=== PATIENT | male | born 1945 | race Caucasian/White ===

== ENCOUNTER 2016-11-19 14:46 | Emergency (ER) | payer MEDICARE, OTHER ==
[~2016-11-19] VITALS: Ht 172.7 cm; Wt 59.0 kg
[2016-11-19 14:46] VITALS: BP 110/62
[~2016-11-19 14:46] MED LIST: ALBU8.5H4 IH; ASPI-495 PO; CLOP75TA2 PO; LISI-607 PO; METO25TA20 PO; ROSU10TA PO; TAMS-12 PO
[2016-11-19] MEDS ORDERED: ACETAMINOPHEN ES 500 MG TABLET PO ONE (15:30)
[2016-11-19] MEDS ORDERED: TDAP [DIPH/PERTUSSIS/TET] 0.5 ML VIAL IM ONE ×2 (15:30→15:32)
[2016-11-19] MEDS ORDERED: ACETAMINOPHEN ES 500 MG TABLET ONE (15:32)
[2016-11-19] MEDS ORDERED: LIDOCAINE HCL/PF 1% 30 ML SDV ONE (15:40)
--- NOTE | 2016-11-19 17:40 | NUR ---
DR MOSQUERA AT BEDSIDE FOR ACI
--- NOTE | 2016-11-19 17:42 | NUR ---
Patient discharged to home in stable condition. Written and verbal after care instructions given. Patient verbalizes understanding of instruction.
== END 2016-11-19 17:43 | disposition home or self-care (01) ==
LOC: ER 14:47
DX: S62.633A Displaced fracture of distal phalanx of left middle finger, initial encounter for closed fracture (principal); S61.213A Laceration without foreign body of left middle finger without damage to nail, initial encounter; I10 Essential (primary) hypertension; N40.0 Benign prostatic hyperplasia without lower urinary tract symptoms; F17.200 Nicotine dependence, unspecified, uncomplicated; Z98.890 Other specified postprocedural states; Z23 Encounter for immunization; Z79.82 Long term (current) use of aspirin; Z79.02 Long term (current) use of antithrombotics/antiplatelets; W23.0XXA Caught, crushed, jammed, or pinched between moving objects, initial encounter; Y93.89 Activity, other specified; Y92.89 Other specified places as the place of occurrence of the external cause; Y99.9 Unspecified external cause status
CPT/HCPCS: 73140-TC; 90715; A4606; A6402; J3490; Z7610

== ENCOUNTER → 2016-11-21 | Emergency (ER) | payer MEDICARE, OTHER ==
[~2016-11-21] VITALS: Ht 175.3 cm; Wt 50.8 kg
[~2016-11-21] MED LIST changes: +BACI/NEOM/POLY B OINT PKT 1 UDPKT PACKET ONE
[2016-11-21 15:07] VITALS: BP 152/78
== END | disposition home or self-care (01) ==
LOC: ER 15:11
DX: S61.213D Laceration without foreign body of left middle finger without damage to nail, subsequent encounter (principal); I10 Essential (primary) hypertension; I25.2 Old myocardial infarction; N40.0 Benign prostatic hyperplasia without lower urinary tract symptoms; Z79.82 Long term (current) use of aspirin
CPT/HCPCS: 99283; A4606; A6402; A6403; Z7502; Z7610

== ENCOUNTER 2016-11-26 13:57 | Emergency (ER) | payer MEDICARE, OTHER ==
[~2016-11-26] VITALS: Ht 172.7 cm; Wt 59.0 kg
[~2016-11-26 13:57] MED LIST changes: -BACI/NEOM/POLY B OINT PKT 1 UDPKT PACKET ONE
[2016-11-26 14:05] VITALS: BP 113/62
== END 2016-11-26 16:51 | disposition other institution (70) ==
LOC: ER 13:59
DX: S62.633D Displaced fracture of distal phalanx of left middle finger, subsequent encounter for fracture with routine healing (principal); S61.213D Laceration without foreign body of left middle finger without damage to nail, subsequent encounter; I10 Essential (primary) hypertension; I25.2 Old myocardial infarction; N40.0 Benign prostatic hyperplasia without lower urinary tract symptoms; E78.00 Pure hypercholesterolemia, unspecified; F17.200 Nicotine dependence, unspecified, uncomplicated; Z79.82 Long term (current) use of aspirin; Z98.890 Other specified postprocedural states; X58.XXXD Exposure to other specified factors, subsequent encounter; Y93.89 Activity, other specified; Y92.89 Other specified places as the place of occurrence of the external cause; Y99.9 Unspecified external cause status
CPT/HCPCS: A4606; A6402; Z7502; Z7610

== ENCOUNTER 2016-12-23 16:24 | Emergency (ER) | payer MEDICARE, OTHER ==
[~2016-12-23] VITALS: Ht 172.7 cm; Wt 59.0 kg
== END 2016-12-23 18:22 | disposition home or self-care (01) ==
LOC: ER 16:26
DX: S61.213D Laceration without foreign body of left middle finger without damage to nail, subsequent encounter (principal); R35.1 Nocturia; M79.641 Pain in right hand; E78.00 Pure hypercholesterolemia, unspecified; I25.2 Old myocardial infarction; I10 Essential (primary) hypertension; N40.1 Benign prostatic hyperplasia with lower urinary tract symptoms; Z79.82 Long term (current) use of aspirin; F17.200 Nicotine dependence, unspecified, uncomplicated
CPT/HCPCS: 99281; A4606; Z7502; Z7610

== ENCOUNTER 2017-02-27 19:55 | Inpatient (IN) | payer MEDICARE, OTHER ==
[~2017-02-27] VITALS: Ht 172.7 cm; Wt 54.9 kg
--- NOTE | 2017-02-27 20:00 | NUR ---
TO BED 5 A 71 YO MALE PATIENT BIBRA 78 FROM HOME C/O CHEST PAIN AND SOB SINCE YESTERDAY, WORSE CREDIT PORTFOLIO MANAGER PER EMS GAVE ASA 162 AND 2 SPRAY NITRO WITH RELIEF; 4/10 PAIN UPON ARRIVAL TO ER. PATIENT IS AAOX4, NAD NOTED. VSS. NONDIAPHORETIC. ON CARDIAC AND VS MONITORING. GOWNED. COMFORT MEASURES RENDERED.
--- NOTE | 2017-02-27 20:03 | NUR ---
DR DEAN AT BEDSIDE TO EVALUATE PATIENT.
[2017-02-27] MEDS ORDERED: ONDANSETRON HCL/PF 4 MG/2 ML VIAL ONE (20:21)
[2017-02-27] MEDS ORDERED: MORPHINE SULFATE INJ 2 MG/ML DISP.SYRIN ONE (20:21)
[2017-02-27] MEDS ORDERED: NITROGLYCERIN PACKET 1 GM PACKET ONE (20:21)
[2017-02-27 20:27] LABS: BASOPHILS # (AUTO) 0.1 /CMM (0.0-0.2); BASOPHILS % (AUTO) 0.7 % (0.0-2.0); EOSINOPHILS # (AUTO) 0.1 /CMM (0.0-0.7); EOSINOPHILS % (AUTO) 1.5 % (0.0-6.0); HEMATOCRIT 41 % (39-51); LYMPHOCYTES % (AUTO) 25.3 % (20.0-44.0); MEAN CORPUSCULAR HEMOGLOBIN 30 PG (26.0-33.0); MEAN CORPUSCULAR HGB CONC 34 g/dl (31.0-36.0); MEAN CORPUSCULAR VOLUME 88 fL (80-96); MONOCYTES # (AUTO) 0.8 /CMM (0.1-1.30); MONOCYTES % (AUTO) 9.7 % (2.0-12.0); NEUTROPHILS # (AUTO) 4.9 /CMM (1.8-8.9); NEUTROPHILS % (AUTO) 62.8 % (43.0-81.0); PLATELET COUNT (AUTO) 192 /CMM (150-450); RDW COEFFICIENT OF VARIATION 12.9 (11.5-15.0); RED BLOOD CELL COUNT(AUTO) 4.72 MIL/uL (4.5-6.0); WHITE BLOOD COUNT (AUTO) 7.9 K/uL (4.3-11.0)
[2017-02-27] MEDS ORDERED: ONDANSETRON HCL/PF 4 MG/2 ML VIAL IVP ONE (20:30)
[2017-02-27] MEDS ORDERED: NITROGLYCERIN PACKET 1 GM PACKET TOP ONE (20:30)
[2017-02-27] MEDS ORDERED: MORPHINE SULFATE INJ 2 MG/ML DISP.SYRIN IV ONE (20:30)
--- NOTE | 2017-02-27 20:33 | NUR ---
MEDICATED PATIENT ORDERED BY DR DEAN. NAD NOTED. VSS. ONGOING CARDIAC AND VS MONITORING. FAMILY AT BEDSIDE.
[2017-02-27 20:34] LABS: CARBON DIOXIDE 33 mmol/L (21-32); CHLORIDE 103 mmol/L (98-107); CREATININE 1.1 mg/dL (0.6-1.3); GLUCOSE 152 mg/dL (74-106); POTASSIUM 3.7 mmol/L (3.5-5.1); SODIUM SERUM 140 mmol/L (136-145); UREA NITROGEN, BLOOD 23 mg/dL (7-18)
[2017-02-27 20:38] LABS: PROTHROMBIN TIME 10.4 SECS (9.5-12.7)
[2017-02-27 20:39] LABS: ALANINE AMINOTRANSFERASE 15 U/L (12-78); ALBUMIN 3.2 g/dL (3.4-5.0); ALKALINE PHOSPHATASE 71 U/L (46-116); ASPARTATE AMINOTRANSFERASE 9 U/L (15-37); BILIRUBIN,DIRECT 0.1 mg/dL (0.0-0.2); BILIRUBIN,TOTAL 0.4 mg/dL (0.2-1.0); TOTAL PROTEIN, SERUM 6.7 g/dL (6.4-8.2)
[2017-02-27 20:42] LABS: TROPONIN I < 0.017 ng/mL (0.00-0.056)
--- NOTE | 2017-02-27 21:00 | NUR ---
PATIENT DENIES ANYMORE CHEST PAIN/DISCOMFORT. NO SOB NOTED. VSS. WILL CONTINUE TO MONITOR.
--- NOTE | 2017-02-27 21:06 | NUR ---
Bed- TELE 310-2
--- NOTE | 2017-02-27 21:28 | NUR ---
Report given to Kee HAMILTON for admission and anitha.
[2017-02-27] MEDS ORDERED: MORPHINE SULFATE INJ 2 MG/ML DISP.SYRIN IV PRN (21:30)
[2017-02-27] MEDS ORDERED: ASPIRIN 81 MG TAB.CHEW PO SCH (21:30)
[2017-02-27] MEDS ORDERED: ACETAMINOPHEN 325 MG TABLET PO PRN (21:30)
[2017-02-27] MEDS ORDERED: ONDANSETRON HCL/PF 4 MG/2 ML VIAL IVP PRN (21:30)
[2017-02-27] MEDS ORDERED: NITROGLYCERIN 0.4 MG/TAB BOTTLE SL PRN (21:30)
--- NOTE | 2017-02-27 21:50 | NUR ---
Transferred patient to tele floor via als protocol, no incident noted.
[2017-02-27] MEDS ORDERED: ASPIRIN 81 MG TAB.CHEW ONE (23:44)
[2017-02-28] VITALS (8 sets, daily range): BP systolic 127–151; BP diastolic 65–78
[2017-02-28] MEDS ORDERED: ZOLPIDEM TARTRATE 5 MG TABLET ONE (00:03)
[2017-02-28] MEDS: ZOLPIDEM TARTRATE 5 MG TABLET PO PRN ×2 (00:09→21:18)
--- NOTE | 2017-02-28 00:10 | NUR ---
RN NOTES PT ASKED FOR SLEEPING PILL- AMBIEN 5MG PO GIVEN ORDERED, V/S STABLE
--- NOTE | 2017-02-28 00:20 | NUR ---
MS RN INITIAL NOTES PT IN BED, AWAKE, ALERT, VERBALLY RESPONSIVE,ON ROOM AIR,NO SOB,NO APPARENT DISTRESS NOTED DENIES ANY PAIN OR DISCOMFORT AT THIS TIME. SINUS RHYTHM 78. IV SITE LT FA INTACT,PATENT,NOS/SX OF INFILTRATION NOTED.CALL LIGHT WITHIN REACH. KEPT CLEAN AND COMFORTABLE.CALL LIGHT WITHIN REACH. WILL CONTINUE TO MONITOR ACCORDINGLY
--- NOTE | 2017-02-28 04:02 | NUR ---
TELE MS RN NOTE RECEIVED REPORT FOR CRITICALLY HIGH TROPONIN LEVEL 0.516. DR MURRAY NOTIFIED, WITH NO NEW ORDER AT THIS TIME.
[2017-02-28 06:34] LABS: BASOPHILS % (AUTO) 0.5 % (0.0-2.0); EOSINOPHILS # (AUTO) 0.1 /CMM (0.0-0.7); EOSINOPHILS % (AUTO) 1.7 % (0.0-6.0); HEMATOCRIT 40 % (39-51); HEMOGLOBIN 13.1 g/dL (13.5-17.5); LYMPHOCYTES # (AUTO) 2.2 /CMM (0.8-4.8); LYMPHOCYTES % (AUTO) 27.2 % (20.0-44.0); MEAN CORPUSCULAR HEMOGLOBIN 30 PG (26.0-33.0); MEAN CORPUSCULAR HGB CONC 33 g/dl (31.0-36.0); MEAN CORPUSCULAR VOLUME 89 fL (80-96); MONOCYTES # (AUTO) 0.8 /CMM (0.1-1.30); MONOCYTES % (AUTO) 10.4 % (2.0-12.0); NEUTROPHILS # (AUTO) 4.8 /CMM (1.8-8.9); NEUTROPHILS % (AUTO) 60.2 % (43.0-81.0); PLATELET COUNT (AUTO) 188 /CMM (150-450); RDW COEFFICIENT OF VARIATION 13.6 (11.5-15.0); RED BLOOD CELL COUNT(AUTO) 4.44 MIL/uL (4.5-6.0)
--- NOTE | 2017-02-28 06:46 | NUR ---
REFUND CLERK CLOSING NOTES PT IN BED AWAKE, ALERT,VERBALLY RESPONSIVE,ON ROOM AIR,NO SOB,NO APPARENT DISTRESS NOTED. DENIES ANY PAIN OR DISCOMFORT AT THIS TIME.CALL LIGHT WITHIN REACH WILL CONTINUE TO MONITOR ACCORDINGLY
[2017-02-28 06:56] LABS: CALCIUM, SERUM 8.6 mg/dL (8.5-10.1); MAGNESIUM 1.9 mg/dL (1.8-2.4); PHOSPHORUS 2.8 mg/dL (2.5-4.9); POTASSIUM 4.1 mmol/L (3.5-5.1)
--- NOTE | 2017-02-28 07:10 | NUR ---
RN INITIAL NOTE PATIENT RECEIVED RESTING COMFORTABLY IN BED. NO SOB OR DISTRESS, PATIENT DENIES PAIN. HEART RATE SR IN THE 70S. BED IN A LOW POSITION, CALL LIGHT WITHIN PATIENT REACH. WILL CONTINUE TO MONITOR.
--- NOTE | 2017-02-28 08:00 | NUR ---
INFORMED DR GUERRERO OF TROP INCREASE TO 0.521. NO NEW ORDERS.
[2017-02-28 08:23] LABS: THYROID STIMULATING HORMONE 2.088 uIU/mL (0.358-3.74)
[2017-02-28 08:48] LABS: MAGNESIUM 1.9 mg/dL (1.8-2.4); PHOSPHORUS 2.9 mg/dL (2.5-4.9)
[2017-02-28] MEDS ORDERED: METOPROLOL TARTRATE 25 MG TABLET PO SCH (09:00)
[2017-02-28] MEDS: IV NS 0.9% 1,000 ML IV PRN ×2 (09:09→21:15)
[2017-02-28] MEDS: METOPROLOL TARTRATE 25 MG TABLET PO SCH ×2 (09:10→17:20)
[2017-02-28] MEDS: ASPIRIN EC 81 MG TABLET.DR PO SCH (09:10)
[2017-02-28] MEDS: VALSARTAN 80 MG TABLET PO SCH (09:11)
[2017-02-28] MEDS: LISINOPRIL (5MG) 5 MG TABLET PO SCH (09:11)
[2017-02-28] MEDS: TAMSULOSIN 0.4 MG CAP.SR.24H PO SCH (09:11)
[2017-02-28] MEDS: CLOPIDOGREL BISULFATE 75 MG TABLET PO SCH (09:11)
[2017-02-28] MEDS: ENOXAPARIN SODIUM 60 MG/0.6 ML DISP.SYRIN SQ SCH ×2 (09:14→21:14)
[2017-02-28] MEDS: ALBUTEROL FS 2.5 MG/0.5 ML VIAL.NEB NEB SCH ×2 (13:30→19:41)
--- NOTE | 2017-02-28 16:51 | NUR ---
Patient lives locally at home with spouse. He is ambulatory and independent with adl's. Has no DME or homehealth reported. No dc planning needs identified at this time. Addendum: 02/28/17 at 1651 by KELSEY HENDRIX RN Amended: Links added.
[2017-02-28] MEDS: BOOST FOOD- BERRY 237 ML BOX PO SCH (17:20)
--- NOTE | 2017-02-28 19:30 | NUR ---
RN OPENING NOTES PATIENT IS IN THE BED, ALERT AND ORIENTED X4. VS STABLE. NO C/O CHEST PAIN AT THIS TIME. NO SOB NOTED. RESPIRATIONS EVEN AND UNLABORED. HEART RATE SR 78 BPM. IV ACCESS ON LFA PATENT AND INTACT, INFUSING NS 100 ML/HR. BED IN A LOW AND LOCKED POSITION. SIDE RAILS X2. CALL LIGHT WITHIN EASY REACH. WILL CONTINUE TO MONITOR AND ASSESS DURING THE SHIFT.
[2017-03-01] VITALS: BP 148/75
[2017-03-01] MEDS: ALBUTEROL FS 2.5 MG/0.5 ML VIAL.NEB NEB SCH ×4 (00:37→20:19)
--- NOTE | 2017-03-01 00:38 | NUR ---
PATIENT REFUSED HHN TREATMENT AT THIS TIME. NO SOB NOTED. RN NOTIFIED
[2017-03-01 04:00] VITALS: BP 134/78
[2017-03-01 06:43] VITALS: BP 134/84
[2017-03-01 06:49] LABS: ALBUMIN 2.9 g/dL (3.4-5.0); BILIRUBIN,TOTAL 0.3 mg/dL (0.2-1.0); MAGNESIUM 1.9 mg/dL (1.8-2.4); PHOSPHORUS 2.5 mg/dL (2.5-4.9); TOTAL PROTEIN, SERUM 6.6 g/dL (6.4-8.2)
--- NOTE | 2017-03-01 06:50 | NUR ---
RN CLOSING NOTES PATIENT IS SLEEPING IN BED, EASY TO AROUSE. VS STABLE. NO SOB NOTED. RESPIRATIONS EVEN AND UNLABORED. TELE MONITOR IS IN PLACE, HEART RATE SR 72 BPM. IV ACCESS ON LFA PATENT AND INTACT, INFUSING NS 100 ML/HR. ALL NEEDS ARE MET AND MEDICATIONS GIVEN PER MD ORDER. BED IN A LOW AND LOCKED POSITION. SIDE RAILS X2. CALL LIGHT WITHIN EASY REACH. WILL ENDORSE TO RN DAY SHIFT FOR CONTINUITY OF CARE.
[2017-03-01 06:53] LABS: CALCIUM, SERUM 8.9 mg/dL (8.5-10.1); POTASSIUM 4.1 mmol/L (3.5-5.1)
[2017-03-01 06:57] LABS: TROPONIN I 0.102 ng/mL (0.00-0.056)
--- NOTE | 2017-03-01 07:27 | NUR ---
RN OPENING NOTES RECEIVED PATIENT AWAKE RESTING COMFORTABLY IN BED. AOX4. SATURATING WELL ON RA. COMPLAINING OF NECK PAIN 09/07. COMPLAINING OF SOME CHEST TIGHTNESS. WILL CONTINUE TO MONITOR. DENIES SOB. RESPIRATIONS EVEN AND UNLABORED. NO ACUTE DISTRESS NOTED. IV ACCESS ON THE LFA 20G PATENT AND INTACT WITH NS RUNNING AT 100MLS/HR. PATEINT RECOGNIZED TO HAVE ELEVATED TROP. YESTERDAY. WILL MONITOR TODAY. BED LOCKED IN THE LOWEST POSITION WITH SIDERAILS UP X2. CALL LIGHT WITHIN REACH. WILL CONTINUE TO MONITOR, ASSESS AND EDUCATE PATIENT THROUGHOUT SHIFT.
[2017-03-01 08:00] VITALS: BP 152/85
[2017-03-01] MEDS: TAMSULOSIN 0.4 MG CAP.SR.24H PO SCH (08:24)
[2017-03-01] MEDS: CLOPIDOGREL BISULFATE 75 MG TABLET PO SCH (08:25)
[2017-03-01] MEDS: VALSARTAN 80 MG TABLET PO SCH (08:25)
[2017-03-01] MEDS: ASPIRIN EC 81 MG TABLET.DR PO SCH (08:25)
[2017-03-01] MEDS: LISINOPRIL (5MG) 5 MG TABLET PO SCH (08:25)
[2017-03-01] MEDS: METOPROLOL TARTRATE 25 MG TABLET PO SCH ×2 (08:26→17:19)
[2017-03-01] MEDS: BOOST FOOD- BERRY 237 ML BOX PO SCH ×2 (08:26→17:20)
[2017-03-01] MEDS: ENOXAPARIN SODIUM 60 MG/0.6 ML DISP.SYRIN SQ SCH (08:26)
[2017-03-01] MEDS ORDERED: METOPROLOL TARTRATE 25 MG TABLET PO SCH (10:00)
[2017-03-01] MEDS ORDERED: LISINOPRIL (5MG) 5 MG TABLET PO ONE (10:00)
[2017-03-01] MEDS ORDERED: LISINOPRIL (20MG) 20 MG TABLET PO SCH (10:00)
[2017-03-01] MEDS ORDERED: LISINOPRIL (5MG) 5 MG TABLET PO SCH (10:00)
[2017-03-01] MEDS ORDERED: METOPROLOL TARTRATE 25 MG TABLET PO ONE (10:00)
--- NOTE | 2017-03-01 10:00 | NUR ---
RN NOTES IV ACCESS ON LFA INFILTRATED. NEW IV PLACED ON THE RFA 20G. PATENT AND INTACT. ON ATTEMPT. PATIENT TOLERATED WELL. WILL CONTINUE TO MONITOR.
[2017-03-01 16:00] VITALS: BP 154/88
--- NOTE | 2017-03-01 19:20 | NUR ---
MS RN INITIAL NOTES RECEIVED PT IN BED, AWAKE,ALERT,VERBALLY RESPONSIVE, ON ROOM AIR,NO SOB, NO APPARENT DISTRESS NOTED. DENIES ANY PAIN OR DISCOMFORT AT THIS TIME. IV SITE LT FA INTACT,PATENT,NO S/SX OF INFILTRATION NOTED.CALL LIGHT WITHIN REACH,ATTENDED ALL NEEDS WILL CONTINUE TO MONITOR ACCORDINGLY
--- NOTE | 2017-03-01 19:25 | NUR ---
RN CLOSING NOTES PATIENT RESTING COMFORTABLY IN BED. AOX4. DENIES PAIN. DENIES SOB AND CP. IV ACCESS ON THE RFA 20G WITH NS RUNNING AT 100ML/HR. PATENT AND INTACT. NO ACUTE DISTRESS. RESPIRATIONS EVEN AND UNLABORED. ALL NEEDS MET. ALL MEDS GIVEN APPROPRIATE. WILL ENDORSE TO NIGHT RN FOR GAURANG.
[2017-03-01 20:00] VITALS: BP 144/82
--- NOTE | 2017-03-01 20:00 | NUR ---
MS RN NOTES SINUS RHYTHM 72
[2017-03-01] MEDS: ZOLPIDEM TARTRATE 5 MG TABLET PO PRN (22:24)
--- NOTE | 2017-03-01 22:24 | NUR ---
MS RN NOTES PT REQUESTED AMBIEN 5MG-MEDICATION ADMINISTERED ORDERD
[2017-03-02] VITALS (7 sets, daily range): BP systolic 126–177; BP diastolic 74–92
[2017-03-02] MEDS: IV NS 0.9% 1,000 ML IV PRN ×2 (00:30→16:37)
[2017-03-02] MEDS: ALBUTEROL FS 2.5 MG/0.5 ML VIAL.NEB NEB SCH ×4 (01:32→20:11)
--- NOTE | 2017-03-02 01:59 | NUR ---
MS RN NOTES PT REQUESTED ANOTHER AMBIEN, DR MURRAY NOTIFIED ,NO NEW ORDER RECEIVED AT THIS TIME.WILL CONTINUE TO MONITOR
--- NOTE | 2017-03-02 06:22 | NUR ---
MS RN CLOSING NOTES PT IN BED,AWAKE,ALERT,VERBALLY RESPONSIVE,ON ROOM AIR, NO SOB NOTED. DENIES ANY PAIN OR DISCOMFORT AT THIS TIME. IV SITE LAC INTACT,PATENT,NO S/SX OF INFILTRATION NOTED. KEPT CLEAN AND COMFORTABLE,ATTENDED ALL NEEDS. WILL MONITOR.
[2017-03-02 07:15] LABS: BASOPHILS % (AUTO) 0.5 % (0.0-2.0); EOSINOPHILS # (AUTO) 0.1 /CMM (0.0-0.7); EOSINOPHILS % (AUTO) 0.9 % (0.0-6.0); HEMATOCRIT 45 % (39-51); HEMOGLOBIN 14.6 g/dL (13.5-17.5); LYMPHOCYTES # (AUTO) 1.7 /CMM (0.8-4.8); LYMPHOCYTES % (AUTO) 19.8 % (20.0-44.0); MEAN CORPUSCULAR HEMOGLOBIN 29 PG (26.0-33.0); MEAN CORPUSCULAR HGB CONC 33 g/dl (31.0-36.0); MEAN CORPUSCULAR VOLUME 90 fL (80-96); MONOCYTES # (AUTO) 0.7 /CMM (0.1-1.30); MONOCYTES % (AUTO) 7.5 % (2.0-12.0); NEUTROPHILS # (AUTO) 6.2 /CMM (1.8-8.9); NEUTROPHILS % (AUTO) 71.3 % (43.0-81.0); PLATELET COUNT (AUTO) 180 /CMM (150-450); RDW COEFFICIENT OF VARIATION 14.3 (11.5-15.0); RED BLOOD CELL COUNT(AUTO) 4.97 MIL/uL (4.5-6.0); WHITE BLOOD COUNT (AUTO) 8.7 K/uL (4.3-11.0)
[2017-03-02 07:32] LABS: TROPONIN I 0.063 ng/mL (0.00-0.056)
[2017-03-02 07:34] LABS: ALBUMIN 3.2 g/dL (3.4-5.0); BILIRUBIN,TOTAL 0.4 mg/dL (0.2-1.0); CREATININE 0.8 mg/dL (0.6-1.3); MAGNESIUM 1.7 mg/dL (1.8-2.4); PHOSPHORUS 2.7 mg/dL (2.5-4.9); POTASSIUM 3.9 mmol/L (3.5-5.1)
--- NOTE | 2017-03-02 07:36 | NUR ---
ALLERGIST: INITIAL NOTE RECEIVED PT A/OX4. ON TELE MONITORING SR AT 78 BPM. CONTINENT. AMBULATORY WITH OUT ASSIST. NO DISTRESS NOTED. NO SOB NOTED. NO PAIN NOTED. NO CHEST PAIN NOTED. SKIN INTACT. ON CARDIAC DIET. L FA #20 IV RUNNING NS AT 100ML/HR. SITE CLEAR AND PATENT. RESTING COMFORTABLY IN BED. CALL LIGHT WITHIN REACH.
[2017-03-02] MEDS: BOOST FOOD- BERRY 237 ML BOX PO SCH ×2 (08:18→17:53)
[2017-03-02] MEDS: CLOPIDOGREL BISULFATE 75 MG TABLET PO SCH (08:19)
[2017-03-02] MEDS: TAMSULOSIN 0.4 MG CAP.SR.24H PO SCH (08:19)
[2017-03-02] MEDS: VALSARTAN 80 MG TABLET PO SCH (08:19)
[2017-03-02] MEDS: ASPIRIN EC 81 MG TABLET.DR PO SCH (08:19)
[2017-03-02] MEDS: METOPROLOL TARTRATE 25 MG TABLET PO SCH ×2 (08:20→16:37)
[2017-03-02] MEDS ORDERED: LISINOPRIL (20MG) 20 MG TABLET PO SCH (09:00)
[2017-03-02] MEDS ORDERED: ENOXAPARIN SODIUM 40 MG/0.4 ML DISP.SYRIN SQ SCH (09:00)
[2017-03-02] MEDS ORDERED: Magnesium 1GM/D5W 100ML PREMIX 100 ML IV SCH (09:53)
[2017-03-02] MEDS: Magnesium 1GM/D5W 100ML PREMIX 100 ML IV SCH ×2 (10:06→11:13)
--- NOTE | 2017-03-02 18:48 | NUR ---
MS RN: CLOSING NOTE PT A/OX4. TOOK ALL MEDICATIONS ON TIME. NO ADVERSE REACTIONS NOTED. NO PAIN NOTED. NO SOB NOTED. NO CHEST PAIN NOTED. CONTINENT. BRP. AMBULATORY. SKIN INTACT. L FA#20 RUNNING NS AT 100ML/HR. SITE CLEAR AND PATENT. SCHEDULED TO TRANSFER TO [facility] FOR CARDIAC CATH AT 6:45AM. PROCEDURE SCHEDULED AT 9AM. NPO AT MIDNIGHT. NO N/V NOTED. RESTING COMFORTABLY IN BED. CALL LIGHT WITHIN REACH.
--- NOTE | 2017-03-02 19:35 | NUR ---
RECEIVED PT AWAKE,ALERT,VERBALLY RESPONSIVE, ON ROOM AIR, NO SOB, RESPIRATIONS EVEN UNLABORED. DENIES ANY PAIN OR DISCOMFORT AT THIS TIME. CALL LIGHT WITHIN REACH.ATTENDED ALL NEEDS. WILL CONTINUE TO MONITOR ACCORDINGLY
[2017-03-02] MEDS: ZOLPIDEM TARTRATE 5 MG TABLET PO PRN (21:56)
--- NOTE | 2017-03-02 22:24 | NUR ---
MS RN NOTES PT COMPLAINED OF INSOMNIA. REQUESTED AMBIEN , MEDICATION ADMINISTERED ORDERED.
[2017-03-03] MEDS: ALBUTEROL FS 2.5 MG/0.5 ML VIAL.NEB NEB SCH ×2 (01:40→07:35)
[2017-03-03 06:27] LABS: BASOPHILS % (AUTO) 0.5 % (0.0-2.0); EOSINOPHILS # (AUTO) 0.1 /CMM (0.0-0.7); EOSINOPHILS % (AUTO) 1.5 % (0.0-6.0); HEMATOCRIT 45 % (39-51); HEMOGLOBIN 14.7 g/dL (13.5-17.5); LYMPHOCYTES % (AUTO) 23.2 % (20.0-44.0); MEAN CORPUSCULAR HEMOGLOBIN 29 PG (26.0-33.0); MEAN CORPUSCULAR HGB CONC 33 g/dl (31.0-36.0); MEAN CORPUSCULAR VOLUME 89 fL (80-96); MONOCYTES # (AUTO) 0.8 /CMM (0.1-1.30); MONOCYTES % (AUTO) 9.5 % (2.0-12.0); NEUTROPHILS # (AUTO) 5.7 /CMM (1.8-8.9); NEUTROPHILS % (AUTO) 65.3 % (43.0-81.0); PLATELET COUNT (AUTO) 191 /CMM (150-450); RDW COEFFICIENT OF VARIATION 14.2 (11.5-15.0); RED BLOOD CELL COUNT(AUTO) 5.04 MIL/uL (4.5-6.0); WHITE BLOOD COUNT (AUTO) 8.8 K/uL (4.3-11.0)
[2017-03-03 06:37] LABS: CALCIUM, SERUM 8.8 mg/dL (8.5-10.1); CREATININE 0.8 mg/dL (0.6-1.3); POTASSIUM 4.1 mmol/L (3.5-5.1)
--- NOTE | 2017-03-03 07:00 | NUR ---
MS RN NOTES PT WENT TO [facility] FOR CATH IN STABLE CONDITION ON ROOM AIR,NO PAIN OR DISCOMFORT, ACCOMPANIED BY TWO AMBULANCE PERSONNEL.ATTENDED ALL NEEDS.
--- NOTE | 2017-03-03 07:00 | NUR ---
NOTIFIED THE RESPONSIBLE DEMOCRAT JAMEL VASQUEZ. REGARDING THE TRANSFER OF THE PT
--- NOTE | 2017-03-03 07:36 | NUR ---
MS RN NOTES REPORT RECEIVED FROM CHASE/ALFONSO. PATIENT IS AT [facility] FOR CARDIAC CATH. SCHEDULED TODAY.
== END 2017-03-03 12:26 | disposition short-term general hospital (02) | DRG 280 ==
LOC: ER 19:56 → TELE 21:20 → MED 03-02 09:55
PROVIDERS: ADMIT Internal Medicine; ATTEND Internal Medicine
DX: I21.4 Non-ST elevation (NSTEMI) myocardial infarction (principal); N17.0 Acute kidney failure with tubular necrosis; E44.1 Mild protein-calorie malnutrition; J44.9 Chronic obstructive pulmonary disease, unspecified; N40.0 Benign prostatic hyperplasia without lower urinary tract symptoms; Z98.890 Other specified postprocedural states; Z79.82 Long term (current) use of aspirin; Z79.899 Other long term (current) drug therapy; E83.42 Hypomagnesemia; F17.200 Nicotine dependence, unspecified, uncomplicated; E78.5 Hyperlipidemia, unspecified; Z95.5 Presence of coronary angioplasty implant and graft; I25.2 Old myocardial infarction; I25.110 Atherosclerotic heart disease of native coronary artery with unstable angina pectoris; I10 Essential (primary) hypertension
CPT/HCPCS: 36415; 71010-TC; 80048-TC; 80053-TC; 80061-TC; 80076-TC; 82306; 83735-TC; 84100-TC; 84439-TC; 84443-TC; 84484-TC; 85025-TC; 85730-TC; 93307-TC; A4606; J1650; J2270; J2405; J3475; J7030; Z7610

== ENCOUNTER 2017-03-20 18:18 | Inpatient (IN) | payer MEDICARE, OTHER ==
[~2017-03-20] VITALS: Ht 172.7 cm; Wt 54.4 kg
[~2017-03-20 18:18] MED LIST changes: +CLOP75TA15 PO; -CLOP75TA2 PO
--- NOTE | 2017-03-20 18:18 | NUR ---
PT HAS LFA #20 IV PLUMBING INSPECTOR
--- NOTE | 2017-03-20 18:18 | NUR ---
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 PLACED ON MONITOR. AWAITING MD ORDER
[2017-03-20] MEDS ORDERED: IPRATROPIUM NEB FS 0.5 MG/2.5 ML AMPUL.NEB NEB ONE (18:30)
[2017-03-20] MEDS ORDERED: ALBUTEROL FS 2.5 MG/3 ML VIAL.NEB NEB ONE (18:30)
[2017-03-20 18:34] LABS: BASOPHILS # (AUTO) 0.7 /CMM (0.0-0.2); BASOPHILS % (AUTO) 4.8 % (0.0-2.0); EOSINOPHILS # (AUTO) 0.2 /CMM (0.0-0.7); EOSINOPHILS % (AUTO) 1.5 % (0.0-6.0); HEMATOCRIT 35 % (39-51); LYMPHOCYTES # (AUTO) 1.5 /CMM (0.8-4.8); LYMPHOCYTES % (AUTO) 11.2 % (20.0-44.0); MEAN CORPUSCULAR HEMOGLOBIN 29 PG (26.0-33.0); MEAN CORPUSCULAR HGB CONC 34 g/dl (31.0-36.0); MEAN CORPUSCULAR VOLUME 86 fL (80-96); MONOCYTES # (AUTO) 0.9 /CMM (0.1-1.30); MONOCYTES % (AUTO) 6.3 % (2.0-12.0); NEUTROPHILS # (AUTO) 10.5 /CMM (1.8-8.9); NEUTROPHILS % (AUTO) 76.2 % (43.0-81.0); PLATELET COUNT (AUTO) 513 /CMM (150-450); RDW COEFFICIENT OF VARIATION 13.6 (11.5-15.0); RED BLOOD CELL COUNT(AUTO) 4.09 MIL/uL (4.5-6.0); WHITE BLOOD COUNT (AUTO) 13.8 K/uL (4.3-11.0)
[2017-03-20] MEDS ORDERED: METO25TA3 PO (18:40)
[2017-03-20] MEDS ORDERED: ALBUTEROL FS 2.5 MG/3 ML VIAL.NEB ONE (18:41)
[2017-03-20] MEDS ORDERED: IPRATROPIUM NEB FS 0.5 MG/2.5 ML AMPUL.NEB ONE (18:41)
[2017-03-20 18:45] LABS: CALCIUM, SERUM 8.9 mg/dL (8.5-10.1); CREATININE 0.8 mg/dL (0.6-1.3)
--- NOTE | 2017-03-20 18:45 | NUR ---
RT AT BEDSIDE FOR BREATHING TX
[2017-03-20] MEDS ORDERED: AMIO200T2 PO (18:48)
[2017-03-20] MEDS ORDERED: IPRA3AMP IH (18:48)
[2017-03-20 18:52] LABS: TROPONIN I 0.04 ng/mL (0.00-0.056)
--- NOTE | 2017-03-20 18:52 | NUR ---
MICA SIZER AT BEDSIDE
[2017-03-20 18:55] LABS: INR 1.11 (0.87-1.13); PROTHROMBIN TIME 11.6 SECS (9.5-12.7)
[2017-03-20 19:02] LABS: BILIRUBIN,DIRECT 0.1 mg/dL (0.0-0.2); BILIRUBIN,TOTAL 0.5 mg/dL (0.2-1.0); TOTAL PROTEIN, SERUM 6.9 g/dL (6.4-8.2)
--- NOTE | 2017-03-20 19:11 | NUR ---
CALLED DR GUERRERO, ON THE PHONE WITH DR HAND.
--- NOTE | 2017-03-20 19:11 | NUR ---
CALLED [employer] GRANULATING BLENDER WAS PAGED.
--- NOTE | 2017-03-20 19:18 | NUR ---
ER SPOKE TO DR. GUERRERO REGARDING PT ADMISSION.
--- NOTE | 2017-03-20 19:28 | NUR ---
CALLED CHIEF PAYROLL CLERK MEGAN FOR BED
--- NOTE | 2017-03-20 19:41 | NUR ---
ER MD SPOKE TO DR. CHELSEA BUCKLEY REGARDING PT ADMISSION.
--- NOTE | 2017-03-20 19:45 | NUR ---
REPORT CALLED TO VICE PRESIDENT PROCESSALFONSO MOELLER. WILL TRANSPORT PT VIA ACLS PROTOCOL.
[2017-03-20 20:00] VITALS: BP 161/68
--- NOTE | 2017-03-20 20:00 | NUR ---
RN NOTES RECEIVED PT AT 1955 VIA DAVID FROM [employer] A/O X 4, PT IN STABLE CONDITION, NO S/S OF DISTRESS. HEAD TO SKIN ASSESSMENT IS DONE. ON 2LPM VIA UT 02 SAT 95% ATTACH TO TELE MONITOR. SAFETY MEASURES ARE IN PLACE, CALL LIGHT IS IN REACH. WILL CONTINUE TO MONITOR.
--- NOTE | 2017-03-20 21:04 | NUR ---
PAGED DR. TRAN REGARDING DIET M.D ORDERED CARDIAC DIET NOTED AND CARRIED OUT
[2017-03-20] MEDS ORDERED: NITROGLYCERIN 0.4 MG/TAB BOTTLE SL PRN (21:30)
[2017-03-20] MEDS ORDERED: ACETAMINOPHEN 325 MG TABLET PO PRN (21:30)
[2017-03-20] MEDS ORDERED: Z GUARD REMEDY 2 OZ OINT TP PRN (21:30)
[2017-03-20] MEDS ORDERED: MAG HYDROX/AL HYDROX/SIMETH 30 ML UDC PO PRN (21:30)
[2017-03-20] MEDS ORDERED: MORPHINE SULFATE INJ 2 MG/ML DISP.SYRIN IV PRN (21:30)
[2017-03-20] MEDS ORDERED: ONDANSETRON HCL/PF 4 MG/2 ML VIAL IVP PRN (21:30)
--- NOTE | 2017-03-20 21:36 | NUR ---
COREG 6.25 MG HELD DECREASED BLOOD PRESSURE Addendum: 03/21/17 at 0039 by SAJAN BALDWIN RN MISTAKEN ENRTY: DISREGARD THIS CHART THIS IS FOR DIFFERENT PATIENT
[2017-03-20] MEDS ORDERED: ENOXAPARIN SODIUM 40 MG/0.4 ML DISP.SYRIN SQ ONE (22:04)
[2017-03-20] MEDS ORDERED: ATORVASTATIN 10 MG TABLET ONE (22:05)
[2017-03-20] MEDS ORDERED: ZOLPIDEM TARTRATE 5 MG TABLET ONE (22:05)
[2017-03-20] MEDS: ZOLPIDEM TARTRATE 5 MG TABLET PO PRN (22:14)
[2017-03-20] MEDS: ATORVASTATIN 10 MG TABLET PO SCH (22:14)
[2017-03-20] MEDS: ENOXAPARIN SODIUM 40 MG/0.4 ML DISP.SYRIN SQ SCH (22:16)
[2017-03-21] VITALS: BP 133/81
[2017-03-21] MEDS ORDERED: MORPHINE SULFATE INJ 2 MG/ML DISP.SYRIN ONE (00:21)
--- NOTE | 2017-03-21 00:25 | NUR ---
MORPHINE 2MG IV WAS GIVEN PT COMPLAINING OF NON SPECIFIC CHEST PAIN 8-10 WHEN HE REPOSITION NON PHARMACOLOGICAL INTERVENTION INEFFECTIVE WILL ASSES AND MTR PT IN STABLE
--- NOTE | 2017-03-21 01:20 | NUR ---
PT NO COMPLAIN OF CHEST PAIN AT THIS TIME 0-10 MEDICATION EFFECTIVE
[2017-03-21 04:00] VITALS: BP 142/80
[2017-03-21] MEDS ORDERED: methylPREDNISolone SOD SUCC 125 MG/2ML VIAL IV SCH (05:00)
[2017-03-21] MEDS ORDERED: methylPREDNISolone SOD SUCC 40 MG/ML VIAL ONE (05:29)
--- NOTE | 2017-03-21 06:25 | NUR ---
TRIBAL DELEGATE CLOSING NOTES PT IN BED ASLEEP AND EASILY AWAKEN, HOB ELEVATED RESPIRATIONS EVEN AND UNLABORED. NO COMPLAIN OF CHEST PAIN AT THIS TIME. ON 2LPM VIA NC 02 SAT 95% NOT IN S/S DISTRESS. KEPT CLEAN AND DRY AND COMFORTABLE, ALL NURSING CARE RENDERED. NEEDS ATTENDED AND ANTICIPATED, FREQUENT VISUAL CHECK DONE FOR SAFETY EVERY 2 HOURS. ON LOW BED AT ALL TIMES TO ENSURE SAFETY. SAFE HAZARD FREE ENVIRONMENT PROVIDED. CALL LIGHT WITHIN EASY TO REACH. WILL ENDORSE NEXT SHIFT CONTINUITY OF CARE. ATTACH TO TELE MONITOR. SR 77'S
--- NOTE | 2017-03-21 07:20 | NUR ---
DIRECTOR OF PULMONARY UNIT NOTES PATIENT ALERT AND ORIENTED X3, BREATHING EVEN AND UNLABORED, ON O2 AT 2LPM VIA NC WITH 96% O2 SAT. NO DISTRESS NOTED, DENIES PAIN OR DISCOMFORT AT THIS TIME, DISCUSSED PLAN OF CARE FOR TODAY, PATIENT VERBALIZED UNDERSTANDING. NEEDS ATTENDED AND MET, CALL LIGHT WITHIN REACH, WILL CONTINUE TO MONITOR.
[2017-03-21 07:28] LABS: BASOPHILS % (AUTO) 0.2 % (0.0-2.0); EOSINOPHILS # (AUTO) 0.2 /CMM (0.0-0.7); EOSINOPHILS % (AUTO) 2.1 % (0.0-6.0); HEMATOCRIT 34 % (39-51); HEMOGLOBIN 11.1 g/dL (13.5-17.5); LYMPHOCYTES # (AUTO) 1.2 /CMM (0.8-4.8); LYMPHOCYTES % (AUTO) 10.8 % (20.0-44.0); MEAN CORPUSCULAR HEMOGLOBIN 29 PG (26.0-33.0); MEAN CORPUSCULAR HGB CONC 33 g/dl (31.0-36.0); MEAN CORPUSCULAR VOLUME 89 fL (80-96); MONOCYTES # (AUTO) 0.8 /CMM (0.1-1.30); MONOCYTES % (AUTO) 7.3 % (2.0-12.0); NEUTROPHILS # (AUTO) 8.8 /CMM (1.8-8.9); NEUTROPHILS % (AUTO) 79.6 % (43.0-81.0); PLATELET COUNT (AUTO) 427 /CMM (150-450); RDW COEFFICIENT OF VARIATION 14.8 (11.5-15.0); RED BLOOD CELL COUNT(AUTO) 3.83 MIL/uL (4.5-6.0)
[2017-03-21 07:46] LABS: CALCIUM, SERUM 8.5 mg/dL (8.5-10.1); CREATININE 0.9 mg/dL (0.6-1.3); MAGNESIUM 1.7 mg/dL (1.8-2.4); PHOSPHORUS 3.3 mg/dL (2.5-4.9); POTASSIUM 3.8 mmol/L (3.5-5.1)
[2017-03-21] MEDS: IPRATROPIUM NEB FS 0.5 MG/2.5 ML AMPUL.NEB NEB SCH ×3 (07:49→20:06)
[2017-03-21 07:55] LABS: THYROID STIMULATING HORMONE 1.965 uIU/mL (0.358-3.74)
[2017-03-21 08:00] VITALS: BP 153/73
[2017-03-21] MEDS ORDERED: FUROSEMIDE 20 MG/2 ML VIAL IV ONE (08:40)
[2017-03-21] MEDS: CLOPIDOGREL BISULFATE 75 MG TABLET PO SCH (09:00)
[2017-03-21] MEDS ORDERED: ASPIRIN EC 81 MG TABLET.DR PO SCH (09:00)
[2017-03-21] MEDS ORDERED: ALBUTEROL FS 2.5 MG/0.5 ML VIAL.NEB NEB PRN (09:00)
[2017-03-21] MEDS: LISINOPRIL (5MG) 5 MG TABLET PO SCH (09:00)
[2017-03-21] MEDS: METOPROLOL SUCCINATE 25 MG TAB.SR.24H PO SCH (09:01)
[2017-03-21] MEDS: ASPIRIN EC 81 MG TABLET.DR PO SCH (09:01)
[2017-03-21] MEDS: AMIODARONE HCL 200 MG TABLET PO SCH (09:01)
[2017-03-21] MEDS: TAMSULOSIN 0.4 MG CAP.SR.24H PO SCH (09:01)
[2017-03-21] MEDS: MAGNESIUM HYDROXIDE 30 ML UDC PO PRN (09:02)
--- NOTE | 2017-03-21 10:05 | NUR ---
RN MS NOTES PATIENT COMPLAINED OF CHEST PAIN, DESCRIBED PRESSURE PAIN BUT NON RADIATING 07/08, BP 122/57, NITRO TAB GIVEN X1, RE-ASSESSED AFTER 5 MINS PATIENT STILL C/O CHEST PAIN BUT PER PATIENT HE FEELS PRESSURE WHEN HE BREATHES IN, HE DOESNT FEEL ITS CARDIAC RELATED, BP SHOWS 102/46 HR 85. PATIENT IS ON 2LPM VIA NC WITH O2 SAT OF 93%. NO DISTRESS NOTED, PATIENT LYING IN SUPINE POSITION, OFFERED NORCO FOR PAIN, AND ACCEPTED. PER PATIENT, "IT WILL HELP ME RELAX"
[2017-03-21] MEDS: HYDROCODONE/APAP 5/325MG 1 EACH TABLET PO PRN ×2 (10:13→20:17)
[2017-03-21] MEDS: Magnesium 1GM/D5W 100ML PREMIX 100 ML IV SCH ×2 (10:51→11:46)
[2017-03-21] MEDS: methylPREDNISolone SOD SUCC 40 MG/ML VIAL IV SCH ×2 (12:24→20:18)
[2017-03-21] MEDS: ALBUTEROL FS 2.5 MG/0.5 ML VIAL.NEB NEB SCH ×2 (13:30→20:06)
[2017-03-21 14:56] LABS: ABG BASE EXCESS 6.3 mmol/L; ABG PCO2 37.7 mmHg (35.0-45.0); ABG PH 7.512 (7.350-7.450); ABG PO2 73.5 mmHg (75.0-100.0); AaDO2 81.7 mmHg; COHb 0.6 % (0.5-1.5); MetHb 0.3 % (0.0-1.5); O2Hb 94.1 % (94.0-97.0); SITE, ABG Right Radial; VENT MODE, BG NC 3L
--- NOTE | 2017-03-21 15:00 | NUR ---
RN MS NOTES ABG RESULT RELAYED TO DR. HULL WITH NO NEW ORDERS.
[2017-03-21 16:00] VITALS: BP 124/69
--- NOTE | 2017-03-21 18:49 | NUR ---
RN MS NOTES PATIENT ALERT AND ORIENTED X3, BREATHING EVEN AND UNLABORED, SITTING UP IN CHAIR, NO SHORTNESS OF BREATH NOTED, DENIES FURTHER STERNAL PAIN AFTER NORCO, PATIENT FEELS COMFORTABLE AT THIS TIME, PIV PATENT AND FLUSHES WELL, PATIENT HAS HARD BROWN BM X1, VOIDED X4 = 200 FROM ONE TIME USE OF URINAL, ENCOURAGED TO USE URINAL FOR MEASUREMENT OF OUTPUT, PATIENT REFUSED, HE PREFERS TO USE THE TOILET. EXPLAINED RISKS AND BENEFITS STILL REFUSED, CHEST INCISION CLEAN AND DRY, NO S/SX OF INFECTION, NEEDS ATTENDED AND MET, CALL LIGHT WITHIN REACH, WILL ENDORSE TO THREAD TWISTER FOR GAURANG.
--- NOTE | 2017-03-21 19:30 | NUR ---
MS RN NOTE: PATIENT RESTING IN BED, NO ACUTE DISTRESS NOTED. BREATHING EVEN AND UNLABORED, NO SOB NOTED. OXYGEN VIA NC AT 2LPM IN PLACE. IV TO LFA IN PLACE. BED LOCKED AND IN LOWEST POSITION, CALL LIGHT IN REACH, WILL CONTINUE TO MONITOR.
[2017-03-21 20:00] VITALS: BP 130/66
--- NOTE | 2017-03-21 20:00 | NUR ---
RN NOTES RECEIVE REPORT FROM NIGHT RN FOR CONTINUITY OF CARE. PT NOW IN BED RESTING COMFORTABLY. A/O X 3, PT IN STABLE CONDITION, NO S/S OF DISTRESS. SAFETY MEASURES ARE IN PLACE, CALL LIGHT IS IN REACH. WILL CONTINUE TO MONITOR. Addendum: 03/21/17 at 2041 by SAJAN BALDWIN RN THIS ENTRY IS FOR TIME 203903/21/2017
--- NOTE | 2017-03-21 20:30 | NUR ---
MS RN NOTE: PATIENT COMPLAINS OF CHEST PAIN 10/07, NORCO 5/325MG ORAL GIVEN PER MD ORDER. WILL CONTINUE TO MONITOR.
--- NOTE | 2017-03-21 20:38 | NUR ---
MS RN NOTE: PATIENT UP IN CHAIR, NO ACUTE DISTRESS NOTED. REPORT GIVEN TO ALFONSO MOELLER TO CONTINUE WITH PLAN OF CARE.
[2017-03-21] MEDS: ATORVASTATIN 10 MG TABLET PO SCH (21:28)
[2017-03-21] MEDS: ZOLPIDEM TARTRATE 5 MG TABLET PO PRN (21:28)
[2017-03-21] MEDS: ENOXAPARIN SODIUM 40 MG/0.4 ML DISP.SYRIN SQ SCH (21:31)
[2017-03-22] MEDS: HYDROCODONE/APAP 5/325MG 1 EACH TABLET PO PRN ×2 (02:01→23:47)
[2017-03-22] MEDS: methylPREDNISolone SOD SUCC 40 MG/ML VIAL IV SCH ×3 (05:07→21:07)
--- NOTE | 2017-03-22 06:24 | NUR ---
MS RN CLOSING NOTES PT ASLEEP AND EASILY AWAKEN, ON 2LPM VIA NC 02 SAT 95 % ATTACH TO TELE MTR. HOB ELEVATED RESPIRATIONS EVEN AND UNLABORED. NOT IN S/S DISTRESS. KEPT CLEAN AND DRY AND COMFORTABLE, ALL NURSING CARE RENDERED. NEEDS ATTENDED AND ANTICIPATED, FREQUENT VISUAL CHECK DONE FOR SAFETY EVERY 2 HOURS. ON LOW BED AT ALL TIMES TO ENSURE SAFETY. SAFE HAZARD FREE ENVIRONMENT PROVIDED. CALL LIGHT WITHIN EASY TO REACH. WILL ENDORSE NEXT SHIFT CONTINUITY OF CARE. NO COMPLAINS OF PAIN AT THIS TIME.
--- NOTE | 2017-03-22 07:29 | NUR ---
RESTRIKE HAMMER OPERATOR NOTES PATIENT ALERT AND ORIENTED X4, BREATHING EVEN AND UNLABORED, ON O2 AT 2LPM VIA NC SATTING WELL, NO ACUTE RESPIRATORY DISTRESS NOTED, DENIES PAIN OR DISCOMFORT, KEPT PT COMFORTABLE, NEEDS ATTENDED, CALL LIGHT WITHIN REACH, WILL CONTINUE TO MONITOR. Addendum: 03/22/17 at 0731 by YOAN HANNA RN CORRECTION: ALFONSO MAS
[2017-03-22] MEDS: ALBUTEROL FS 2.5 MG/0.5 ML VIAL.NEB NEB SCH ×3 (07:33→19:33)
[2017-03-22] MEDS: IPRATROPIUM NEB FS 0.5 MG/2.5 ML AMPUL.NEB NEB SCH ×3 (07:33→19:33)
[2017-03-22 07:57] LABS: HEMATOCRIT 33 % (39-51); HEMOGLOBIN 11.1 g/dL (13.5-17.5); LYMPHOCYTES # (AUTO) 0.9 /CMM (0.8-4.8); LYMPHOCYTES % (AUTO) 5.3 % (20.0-44.0); MEAN CORPUSCULAR HEMOGLOBIN 30 PG (26.0-33.0); MEAN CORPUSCULAR HGB CONC 33 g/dl (31.0-36.0); MEAN CORPUSCULAR VOLUME 90 fL (80-96); MONOCYTES # (AUTO) 0.6 /CMM (0.1-1.30); MONOCYTES % (AUTO) 3.4 % (2.0-12.0); NEUTROPHILS # (AUTO) 15.3 /CMM (1.8-8.9); NEUTROPHILS % (AUTO) 91.3 % (43.0-81.0); PLATELET COUNT (AUTO) 449 /CMM (150-450); RDW COEFFICIENT OF VARIATION 15.5 (11.5-15.0); RED BLOOD CELL COUNT(AUTO) 3.72 MIL/uL (4.5-6.0); WHITE BLOOD COUNT (AUTO) 16.8 K/uL (4.3-11.0)
[2017-03-22 08:00] VITALS: BP 149/90
[2017-03-22 08:30] LABS: ALBUMIN 2.6 g/dL (3.4-5.0); BILIRUBIN,TOTAL 0.4 mg/dL (0.2-1.0); CALCIUM, SERUM 8.6 mg/dL (8.5-10.1); CREATININE 0.9 mg/dL (0.6-1.3); MAGNESIUM 2.1 mg/dL (1.8-2.4); TOTAL PROTEIN, SERUM 6.2 g/dL (6.4-8.2)
[2017-03-22] MEDS: ASPIRIN EC 81 MG TABLET.DR PO SCH (08:43)
[2017-03-22] MEDS: METOPROLOL SUCCINATE 25 MG TAB.SR.24H PO SCH (08:43)
[2017-03-22] MEDS: AMIODARONE HCL 200 MG TABLET PO SCH (08:43)
[2017-03-22] MEDS: CLOPIDOGREL BISULFATE 75 MG TABLET PO SCH (08:43)
[2017-03-22] MEDS: TAMSULOSIN 0.4 MG CAP.SR.24H PO SCH (08:43)
[2017-03-22] MEDS: LISINOPRIL (5MG) 5 MG TABLET PO SCH ×2 (08:44→16:56)
[2017-03-22] MEDS: MAGNESIUM HYDROXIDE 30 ML UDC PO PRN (08:51)
[2017-03-22] MEDS: NICOTINE PATCH (14MG) 14 MG PATCH.TD24 TD SCH (12:28)
--- NOTE | 2017-03-22 12:57 | NUR ---
ALFONSO FELDER NOTES RECEIVED ORDER FOR COLACE 100MG BID FROM NICKY NIEVES. ORDER NOTED AND CARRIED OUT. PATIENT SHOWED 96% O2 SAT IN ROOM AIR. PATIENT WITH NO SHORTNESS OF BREATH NOTED. WILL CLOSELY MONITOR. Addendum: 03/22/17 at 1301 by YOAN HANNA RN ADDENDUM: RELAYED WBC COUNT TO NICKY NIEVES, NO NEW ORDER. PATIENT IS CURRENTLY ON SOLU-MEDROL.
[2017-03-22 16:00] VITALS: BP 147/70
[2017-03-22] MEDS: DOCUSATE SODIUM 100 MG CAPSULE PO SCH (16:56)
--- NOTE | 2017-03-22 18:49 | NUR ---
RN MS NOTES PATIENT IN BED ALERT AND ORIENTED X3, ON AND OFF OXYGEN, AT REST PT'S SPO2 IS 96%, BUT PER PATIENT AFTER WALKING TO THE BATHROOM, HE FEELS SLIGHTLY SOB AND WOULD USE THE OXYGEN BACK ON, SPO2 SHOWS 90-92%. PATIENT IS IN NO DISTRESS AT THIS TIME. KEPT SKIN CLEAN AND DRY, ADL CARE PROVIDED, ALL NEEDS ATTENDED AND MET, CALL LIGHT WITHIN REACH, WILL ENDORSE TO CORKING MACHINE OPERATOR FOR GAURANG.
--- NOTE | 2017-03-22 19:00 | NUR ---
RN NOTES IN BED RESTING COMFORTABLY. A/O X 4, PT IN STABLE CONDITION, NO S/S OF DISTRESS. SAFETY MEASURES ARE IN PLACE, CALL LIGHT IS IN REACH. WILL CONTINUE TO MONITOR.
[2017-03-22 20:00] VITALS: BP 153/86
[2017-03-22] MEDS: ATORVASTATIN 10 MG TABLET PO SCH (21:07)
[2017-03-22] MEDS: ZOLPIDEM TARTRATE 5 MG TABLET PO PRN (21:07)
[2017-03-22] MEDS: ENOXAPARIN SODIUM 40 MG/0.4 ML DISP.SYRIN SQ SCH (21:08)
[2017-03-23] MEDS: methylPREDNISolone SOD SUCC 40 MG/ML VIAL IV SCH ×2 (04:58→13:31)
--- NOTE | 2017-03-23 06:17 | NUR ---
MS RN CLOSING NOTES HEAD OF BED ELEVATED. IN BED ASLEEP AND EASILY AWAKEN, RESPIRATIONS EVEN AND UNLABORED. 2LPM VIA NC 02 SAT 96% NOT IN S/S DISTRESS. STABLE CONDITION. NURSING CARE RENDERED. NEEDS ATTENDED AND ANTICIPATED, KEPT CLEAN AND DRY AND COMFORTABLE, NO COMPLAINS OF CHEST PAIN. FREQUENT VISUAL CHECK DONE FOR SAFETY EVERY 2 HOURS. ON LOW BED AT ALL TIMES TO ENSURE SAFETY. SAFE HAZARD FREE ENVIRONMENT PROVIDED. CALL LIGHT WITHIN EASY TO REACH. WILL ENDORSE NEXT SHIFT CONTINUITY OF CARE.
[2017-03-23 06:38] LABS: HEMATOCRIT 31 % (39-51); HEMOGLOBIN 10.3 g/dL (13.5-17.5); LYMPHOCYTES # (AUTO) 0.7 /CMM (0.8-4.8); LYMPHOCYTES % (AUTO) 3.6 % (20.0-44.0); MEAN CORPUSCULAR HEMOGLOBIN 29 PG (26.0-33.0); MEAN CORPUSCULAR HGB CONC 33 g/dl (31.0-36.0); MEAN CORPUSCULAR VOLUME 89 fL (80-96); MONOCYTES # (AUTO) 0.5 /CMM (0.1-1.30); MONOCYTES % (AUTO) 2.5 % (2.0-12.0); NEUTROPHILS # (AUTO) 18.3 /CMM (1.8-8.9); NEUTROPHILS % (AUTO) 93.9 % (43.0-81.0); PLATELET COUNT (AUTO) 448 /CMM (150-450); RDW COEFFICIENT OF VARIATION 14.9 (11.5-15.0); RED BLOOD CELL COUNT(AUTO) 3.52 MIL/uL (4.5-6.0); WHITE BLOOD COUNT (AUTO) 19.5 K/uL (4.3-11.0)
[2017-03-23 06:58] LABS: CALCIUM, SERUM 8.3 mg/dL (8.5-10.1); CREATININE 0.9 mg/dL (0.6-1.3); MAGNESIUM 1.9 mg/dL (1.8-2.4); PHOSPHORUS 2.7 mg/dL (2.5-4.9); POTASSIUM 4.1 mmol/L (3.5-5.1)
[2017-03-23 08:00] VITALS: BP 146/81
[2017-03-23] MEDS: ALBUTEROL FS 2.5 MG/0.5 ML VIAL.NEB NEB SCH ×3 (08:15→20:01)
[2017-03-23] MEDS: IPRATROPIUM NEB FS 0.5 MG/2.5 ML AMPUL.NEB NEB SCH ×3 (08:15→20:01)
[2017-03-23] MEDS: TAMSULOSIN 0.4 MG CAP.SR.24H PO SCH (09:16)
[2017-03-23] MEDS: NICOTINE PATCH (14MG) 14 MG PATCH.TD24 TD SCH (09:16)
[2017-03-23] MEDS: AMIODARONE HCL 200 MG TABLET PO SCH (09:18)
[2017-03-23] MEDS: LISINOPRIL (5MG) 5 MG TABLET PO SCH ×2 (09:18→16:43)
[2017-03-23] MEDS: DOCUSATE SODIUM 100 MG CAPSULE PO SCH ×2 (09:27→17:00)
[2017-03-23] MEDS: CLOPIDOGREL BISULFATE 75 MG TABLET PO SCH (09:27)
[2017-03-23] MEDS: ASPIRIN EC 81 MG TABLET.DR PO SCH (09:27)
--- NOTE | 2017-03-23 10:01 | NUR ---
RN OPENING NOTES RECEIVED PT. PT IS STABLE AND RESTING IN BED. A/OX4. PT BREATHING IS SLIGHTLY LABORED. ON 2L O2 VIA NC WITH O2 SAT AT 95%. PT'S HOB PLACED UPRIGHT TO EASE WORK OF BREATHING. IV ACCESS LOCATED ON LEFT FOREARM 20G SL. PT REQUESTS EXTENSION STAY FOR ONE ADDITIONAL DAY, DUE TO FAMILY MEMBERS WITH ACTIVE FLU, WILL F/U WITH MD REGARDING REQUEST. SAFETY MEASURES IN PLACE, CALL LIGHT WITHIN REACH. WILL CONTINUE TO MONITOR.
[2017-03-23 12:11] LABS: ABG BASE EXCESS 2.2 mmol/L; ABG OXYGEN SATURATION 95.1 % (92.0-98.5); ABG PCO2 33.7 mmHg (35.0-45.0); ABG PH 7.491 (7.350-7.450); AaDO2 82.9 mmHg; COHb 0.3 % (0.5-1.5); MetHb 0.4 % (0.0-1.5); O2Hb 94.4 % (94.0-97.0); SITE, ABG Right Radial; VENT MODE, BG NC 3L
[2017-03-23 16:00] VITALS: BP 159/72
--- NOTE | 2017-03-23 18:56 | NUR ---
RN CLOSING NOTES PT IS AWAKE, RESTING QUIETLY IN BED. A/OX4. NO S/S OF SOB, NO C/O PAIN AT THIS TIME. PT AWAITING DC PICKUP TO [facility]. ALL PT NEEDS ANTICIPATED AND MET. BED LOWERED TO LOWEST POSITION, SIDERAILS RAISED X2. SAFETY MEASURES IN PLACE, CALL LIGHT WITHIN REACH. WILL ENDORSE TO ATHLETICS DIRECTOR FOR GAURANG.
[2017-03-23 20:00] VITALS: BP 154/73
--- NOTE | 2017-03-23 20:20 | NUR ---
MS/RN NOTES PATIENT AWAKE, ALERT X3, ABLE TO VERBALIZE NEEDS, AMBULATORY DENIES PAIN, 2 EMT ARRIVE AND PATIENT TRANSFERED TO [facility]. , BELONGINGS RECEIVED AND ID BAND REMOVED. DICUSSED DISCHARGE PLAN AND LOCATION WHERE THE PATIENT WILL BE TRANSFERED, REORT GIVEN TO EMT ANF REPORTED [facility] WILL ACCEPT THE PATIENT AND REPORT GIVEN TO ALFONSO BROTHERS. VITAL SIGNS CHECK TEMP AT 98.2, PULSE 74, R-20, O2 SAT AT 100% AND B/P 154/73.
[2017-03-23] MEDS ORDERED: PRED50TA PO (23:15)
== END 2017-03-23 20:25 | DRG 190 ==
LOC: ER 18:19 → TELE 19:42 → MED 03-21 08:22
DX: J44.1 Chronic obstructive pulmonary disease with (acute) exacerbation (principal); I50.33 Acute on chronic diastolic (congestive) heart failure; I11.0 Hypertensive heart disease with heart failure; Z95.1 Presence of aortocoronary bypass graft; I25.10 Atherosclerotic heart disease of native coronary artery without angina pectoris; E78.5 Hyperlipidemia, unspecified; Z98.890 Other specified postprocedural states; Z79.82 Long term (current) use of aspirin; Z79.899 Other long term (current) drug therapy; D72.829 Elevated white blood cell count, unspecified; N40.0 Benign prostatic hyperplasia without lower urinary tract symptoms; I25.2 Old myocardial infarction; Z87.891 Personal history of nicotine dependence; Z87.440 Personal history of urinary (tract) infections; Z98.61 Coronary angioplasty status
CPT/HCPCS: 36415; 36600; 71010-TC; 80048-TC; 80053-TC; 80061-TC; 80076-TC; 82803-TC; 83735-TC; 83880; 84100-TC; 84443-TC; 84484-TC; 85025-TC; 85730-TC; 87081-TC; 94799-TC; A4606; J1650; J1940; J2270; J2920; J3475; Z7610

== ENCOUNTER 2017-05-08 17:59 | Emergency (ER) | payer MEDICARE, OTHER ==
[~2017-05-08] VITALS: Ht 167.6 cm; Wt 59.0 kg
[~2017-05-08 17:59] MED LIST changes: +AMIO200T2 PO; +IPRA3AMP IH; -METO25TA20 PO; +METO25TA3 PO; +PRED50TA PO
--- NOTE | 2017-05-08 18:04 | NUR ---
PT BIB RA C/O MID STERNAL CHEST PAIN, PRESSURE-LIKE, NON RADIATING SINCE YESTERDAY. PT REPORTS THAT HE HAS HAD INCREASING SHORTNESS OF BREATH WHILE WALKING 30 FEET FOR THE PAST 3 DAYS. PT IS WARM TO TOUCH, NON DIAPHORETIC, NON TACHYCARDIC, BREATHING EQUAL AND UNLABORED. PT PLACED ON MONITOR, EKG COMPLETED. PT SEEN AND EVALUATED BY DR BUTTS
[2017-05-08 18:23] LABS: BASOPHILS # (AUTO) 0.1 /CMM (0.0-0.2); EOSINOPHILS # (AUTO) 0.2 /CMM (0.0-0.7); EOSINOPHILS % (AUTO) 1.4 % (0.0-6.0); HEMATOCRIT 38 % (39-51); HEMOGLOBIN 12.6 g/dL (13.5-17.5); LYMPHOCYTES # (AUTO) 2.2 /CMM (0.8-4.8); LYMPHOCYTES % (AUTO) 19.3 % (20.0-44.0); MEAN CORPUSCULAR HEMOGLOBIN 28 PG (26.0-33.0); MEAN CORPUSCULAR HGB CONC 33 g/dl (31.0-36.0); MEAN CORPUSCULAR VOLUME 85 fL (80-96); MONOCYTES # (AUTO) 1.1 /CMM (0.1-1.30); MONOCYTES % (AUTO) 10.1 % (2.0-12.0); NEUTROPHILS # (AUTO) 7.6 /CMM (1.8-8.9); NEUTROPHILS % (AUTO) 68.2 % (43.0-81.0); PLATELET COUNT (AUTO) 315 /CMM (150-450); RDW COEFFICIENT OF VARIATION 14.6 (11.5-15.0); RED BLOOD CELL COUNT(AUTO) 4.52 MIL/uL (4.5-6.0); WHITE BLOOD COUNT (AUTO) 11.2 K/uL (4.3-11.0)
[2017-05-08] MEDS ORDERED: predniSONE 20 MG TABLET PO ONE (18:30)
[2017-05-08] MEDS ORDERED: NITROGLYCERIN PACKET 1 GM PACKET TOP ONE (18:30)
[2017-05-08] MEDS ORDERED: IPRATROPIUM NEB FS 0.5 MG/2.5 ML AMPUL.NEB NEB ONE (18:30)
[2017-05-08] MEDS ORDERED: ALBUTEROL FS 2.5 MG/3 ML VIAL.NEB CONTNEB ONE (18:30)
[2017-05-08 18:33] LABS: CALCIUM, SERUM 8.7 mg/dL (8.5-10.1); CARBON DIOXIDE 30 mmol/L (21-32); CHLORIDE 105 mmol/L (98-107); CREATININE 0.9 mg/dL (0.6-1.3); GLUCOSE 99 mg/dL (74-106); POTASSIUM 4.4 mmol/L (3.5-5.1); SODIUM SERUM 139 mmol/L (136-145); UREA NITROGEN, BLOOD 22 mg/dL (7-18)
[2017-05-08 18:34] LABS: INR 0.99 (0.85-1.15)
[2017-05-08 18:41] LABS: TROPONIN I < 0.017 ng/mL (0.00-0.056)
[2017-05-08 18:46] LABS: B-TYPE NATRIURETIC PEPTIDE 2161 PG/ML (0-125)
[2017-05-08] MEDS ORDERED: NITROGLYCERIN PACKET 1 GM PACKET ONE (18:49)
[2017-05-08] MEDS ORDERED: predniSONE 20 MG TABLET ONE (18:49)
[2017-05-08] MEDS ORDERED: ALBUTEROL FS 2.5 MG/3 ML VIAL.NEB ONE (19:12)
[2017-05-08] MEDS ORDERED: IPRATROPIUM NEB FS 0.5 MG/2.5 ML AMPUL.NEB ONE (19:12)
--- NOTE | 2017-05-08 19:18 | NUR ---
received report from ALFONSO Rhodes for anitha.
[2017-05-08] MEDS ORDERED: IOHEXOL-300 100 ML VIAL IV ONE (19:48)
--- NOTE | 2017-05-08 19:54 | NUR ---
PATIENTS PROVIDED CELL PHONE NUMBER# . REQUESTED TO CALL HER WITH ANY UPDATE.
--- NOTE | 2017-05-08 20:09 | NUR ---
PT TO CT
--- NOTE | 2017-05-08 20:19 | NUR ---
PT BACK FROM CT. PLACED ON MONITOR AND POX
--- NOTE | 2017-05-08 20:58 | NUR ---
DR BUTTS BEDSIDE SPEAKING WITH PT.
--- NOTE | 2017-05-08 21:18 | NUR ---
Patient discharged to home in stable condition. Written and verbal after care instructions given. Patient verbalizes understanding of instruction.IV removed. Catheter intact and site benign. Pressure and 4x4 applied to site. No bleeding noted. Pt ambulated with steady gait out of ER accompanied by and son.
[2017-05-08 21:19] VITALS: BP 139/87
== END 2017-05-08 21:23 | disposition home or self-care (01) ==
LOC: ER 18:00
DX: C34.90 Malignant neoplasm of unspecified part of unspecified bronchus or lung (principal); E78.00 Pure hypercholesterolemia, unspecified; I10 Essential (primary) hypertension; I25.10 Atherosclerotic heart disease of native coronary artery without angina pectoris; F17.200 Nicotine dependence, unspecified, uncomplicated; I45.10 Unspecified right bundle-branch block; J44.1 Chronic obstructive pulmonary disease with (acute) exacerbation; Z79.82 Long term (current) use of aspirin; Z95.1 Presence of aortocoronary bypass graft
CPT/HCPCS: 36415; 71045; 71260; 80048; 83880; 84484; 85025; 85610; 93005; 94644; 99285; A4606; J7512; Q9967; Z7610

== ENCOUNTER 2017-06-19 19:26 | Emergency (ER) | payer MEDICARE, OTHER ==
[~2017-06-19] VITALS: Ht 172.7 cm; Wt 59.0 kg
--- NOTE | 2017-06-19 19:26 | NUR ---
PT AMBULATORY TO ER BED 13. C/O SOB AND PAIN UPON DEEP BREATHING THAT STARTED YESTERDAY AND GOT WORST TODAY. PT STATES LUNG BYPASS FRIDAY. GOWNED AND PLACED ON MONITOR. STABLE VITALS. AWAITING MD CHANDLER.
--- NOTE | 2017-06-19 19:54 | NUR ---
DR HSIEH AT BEDSIDE FOR EVAL.
[2017-06-19] MEDS ORDERED: CYCLOBENZAPRINE 10 MG TABLET ONE (20:21)
[2017-06-19 20:23] LABS: BASOPHILS # (AUTO) 0.1 /CMM (0.0-0.2); BASOPHILS % (AUTO) 0.7 % (0.0-2.0); EOSINOPHILS # (AUTO) 0.1 /CMM (0.0-0.7); EOSINOPHILS % (AUTO) 0.8 % (0.0-6.0); HEMATOCRIT 40 % (39-51); HEMOGLOBIN 13.3 g/dL (13.5-17.5); LYMPHOCYTES # (AUTO) 1.4 /CMM (0.8-4.8); LYMPHOCYTES % (AUTO) 17.4 % (20.0-44.0); MEAN CORPUSCULAR HEMOGLOBIN 28 PG (26.0-33.0); MEAN CORPUSCULAR HGB CONC 33 g/dl (31.0-36.0); MEAN CORPUSCULAR VOLUME 84 fL (80-96); MONOCYTES # (AUTO) 0.5 /CMM (0.1-1.30); MONOCYTES % (AUTO) 6.1 % (2.0-12.0); NEUTROPHILS # (AUTO) 6.2 /CMM (1.8-8.9); PLATELET COUNT (AUTO) 234 /CMM (150-450); RDW COEFFICIENT OF VARIATION 14.8 (11.5-15.0); RED BLOOD CELL COUNT(AUTO) 4.79 MIL/uL (4.5-6.0); WHITE BLOOD COUNT (AUTO) 8.3 K/uL (4.3-11.0)
[2017-06-19] MEDS ORDERED: IPRATROPIUM NEB FS 0.5 MG/2.5 ML AMPUL.NEB NEB ONE ×2 (20:30)
[2017-06-19] MEDS ORDERED: ALBUTEROL FS 2.5 MG/0.5 ML VIAL.NEB NEB ONE ×2 (20:30)
[2017-06-19] MEDS ORDERED: CYCLOBENZAPRINE 10 MG TABLET PO ONE (20:30)
[2017-06-19] MEDS ORDERED: IV NS 0.9% 1,000 ML BAG IV ONE (20:30)
[2017-06-19 20:32] LABS: CALCIUM, SERUM 9.1 mg/dL (8.5-10.1); CREATININE 0.9 mg/dL (0.6-1.3); POTASSIUM 4.1 mmol/L (3.5-5.1)
[2017-06-19] MEDS ORDERED: IOHEXOL-350 100 ML VIAL IV ONE (20:34)
[2017-06-19] MEDS ORDERED: IV NS 0.9% 250 ML IV ONE (20:34)
[2017-06-19] MEDS ORDERED: ALBUTEROL FS 2.5 MG/0.5 ML VIAL.NEB ONE (20:43)
[2017-06-19] MEDS ORDERED: IPRATROPIUM NEB FS 0.5 MG/2.5 ML AMPUL.NEB ONE (20:43)
[2017-06-19] MEDS ORDERED: KETOROLAC TROMETHAMINE 15 MG/ML VIAL ONE (21:57)
[2017-06-19] MEDS ORDERED: KETOROLAC TROMETHAMINE INJ 30 MG/ML VIAL IV ONE (22:00)
[2017-06-19 22:43] VITALS: BP 126/74
--- NOTE | 2017-06-19 22:43 | NUR ---
Patient discharged to home in stable condition. Written and verbal after care instructions given. Patient verbalizes understanding of instruction.IV removed. Catheter intact and site benign. Pressure and 4x4 applied to site. No bleeding noted.
== END 2017-06-19 22:44 | disposition home or self-care (01) ==
LOC: ER 19:38
DX: M54.6 Pain in thoracic spine (principal); F17.200 Nicotine dependence, unspecified, uncomplicated; C34.90 Malignant neoplasm of unspecified part of unspecified bronchus or lung; E78.00 Pure hypercholesterolemia, unspecified; I10 Essential (primary) hypertension; I25.10 Atherosclerotic heart disease of native coronary artery without angina pectoris; E78.5 Hyperlipidemia, unspecified; J44.9 Chronic obstructive pulmonary disease, unspecified; Z79.82 Long term (current) use of aspirin; Z95.1 Presence of aortocoronary bypass graft; Z98.890 Other specified postprocedural states
CPT/HCPCS: 36415; 71275; 80048; 83880; 85025; 93005; 94640 ×2; 96361; 96374; 99285; J1885; J7030; J7050; Q9967; Z7610

== ENCOUNTER 2017-06-20 17:32 | Inpatient (IN) | payer MEDICARE, OTHER ==
[~2017-06-20] VITALS: Ht 172.7 cm; Wt 57.2 kg
[2017-06-20 18:15] LABS: BASOPHILS % (AUTO) 0.4 % (0.0-2.0); EOSINOPHILS # (AUTO) 0.1 /CMM (0.0-0.7); EOSINOPHILS % (AUTO) 1.2 % (0.0-6.0); HEMATOCRIT 38 % (39-51); HEMOGLOBIN 12.9 g/dL (13.5-17.5); LYMPHOCYTES # (AUTO) 1.6 /CMM (0.8-4.8); LYMPHOCYTES % (AUTO) 19.5 % (20.0-44.0); MEAN CORPUSCULAR HEMOGLOBIN 28 PG (26.0-33.0); MEAN CORPUSCULAR HGB CONC 34 g/dl (31.0-36.0); MEAN CORPUSCULAR VOLUME 83 fL (80-96); MONOCYTES # (AUTO) 0.8 /CMM (0.1-1.30); NEUTROPHILS # (AUTO) 5.8 /CMM (1.8-8.9); NEUTROPHILS % (AUTO) 68.9 % (43.0-81.0); PLATELET COUNT (AUTO) 231 /CMM (150-450); RDW COEFFICIENT OF VARIATION 15.2 (11.5-15.0); RED BLOOD CELL COUNT(AUTO) 4.59 MIL/uL (4.5-6.0); WHITE BLOOD COUNT (AUTO) 8.3 K/uL (4.3-11.0)
[2017-06-20] MEDS ORDERED: ONDANSETRON HCL/PF 4 MG/2 ML VIAL ONE (18:22)
[2017-06-20] MEDS ORDERED: MORPHINE SULFATE INJ 4 MG/ML DISP.SYRIN ONE (18:22)
[2017-06-20 18:25] LABS: CALCIUM, SERUM 9.1 mg/dL (8.5-10.1); CARBON DIOXIDE 30 mmol/L (21-32); CHLORIDE 107 mmol/L (98-107); CREATININE 0.9 mg/dL (0.6-1.3); GLUCOSE 85 mg/dL (74-106); POTASSIUM 4.2 mmol/L (3.5-5.1); SODIUM SERUM 143 mmol/L (136-145); UREA NITROGEN, BLOOD 20 mg/dL (7-18)
[2017-06-20] MEDS ORDERED: ONDANSETRON HCL/PF 4 MG/2 ML VIAL IVP ONE (18:30)
[2017-06-20] MEDS ORDERED: ALBUTEROL FS 2.5 MG/3 ML VIAL.NEB NEB ONE (18:30)
[2017-06-20] MEDS ORDERED: MORPHINE SULFATE INJ 2 MG/ML DISP.SYRIN IV ONE (18:30)
[2017-06-20 18:33] LABS: TROPONIN I < 0.017 ng/mL (0.00-0.056)
[2017-06-20 18:38] LABS: B-TYPE NATRIURETIC PEPTIDE 3092 PG/ML (0-125)
[2017-06-20] MEDS ORDERED: ALBUTEROL FS 2.5 MG/3 ML VIAL.NEB ONE (18:57)
[2017-06-20 19:24] LABS: INR 0.99 (0.87-1.13)
[2017-06-20] MEDS ORDERED: DILTIAZEM HCL IV 125 MG in IV NS 0.9% 100 ML IV PRN (19:30)
[2017-06-20 19:54] LABS: D-DIMER 0.73 mg/L(FEU (0.17-0.50)
[2017-06-20] MEDS ORDERED: AMIODARONE 900 MG in IV D5W 482 ML IV PRN (20:00)
[2017-06-20] MEDS ORDERED: AMIODARONE 150 MG in IV D5W 100 ML IV ONE (20:00)
[2017-06-20] MEDS ORDERED: IPRATROPIUM NEB FS 0.5 MG/2.5 ML AMPUL.NEB NEB PRN (21:30)
[2017-06-20] MEDS ORDERED: MAG HYDROX/AL HYDROX/SIMETH 30 ML UDC PO PRN (21:30)
[2017-06-20] MEDS ORDERED: ONDANSETRON HCL/PF 4 MG/2 ML VIAL IVP PRN (21:30)
[2017-06-20] MEDS ORDERED: ACETAMINOPHEN 325 MG TABLET PO PRN (21:30)
[2017-06-20] MEDS ORDERED: ALBUTEROL FS 2.5 MG/3 ML VIAL.NEB NEB PRN (21:30)
[2017-06-20] MEDS ORDERED: MAGNESIUM HYDROXIDE 30 ML UDC PO PRN (21:30)
[2017-06-20 21:45] VITALS: BP 166/82
[2017-06-20 22:00] VITALS: BP 166/82
[2017-06-20] MEDS: ATORVASTATIN 10 MG TABLET PO SCH (22:20)
[2017-06-20] MEDS: HYDROCODONE/APAP 5/325MG 1 EACH TABLET PO PRN (22:21)
[2017-06-21] VITALS (7 sets, daily range): BP systolic 139–155; BP diastolic 69–80
[2017-06-21] MEDS: MORPHINE SULFATE INJ 2 MG/ML DISP.SYRIN IV PRN ×2 (00:25→06:28)
[2017-06-21 07:13] LABS: BASOPHILS % (AUTO) 0.6 % (0.0-2.0); EOSINOPHILS # (AUTO) 0.1 /CMM (0.0-0.7); EOSINOPHILS % (AUTO) 1.4 % (0.0-6.0); HEMATOCRIT 36 % (39-51); HEMOGLOBIN 11.8 g/dL (13.5-17.5); LYMPHOCYTES # (AUTO) 2.1 /CMM (0.8-4.8); LYMPHOCYTES % (AUTO) 27.5 % (20.0-44.0); MEAN CORPUSCULAR HEMOGLOBIN 28 PG (26.0-33.0); MEAN CORPUSCULAR HGB CONC 33 g/dl (31.0-36.0); MEAN CORPUSCULAR VOLUME 85 fL (80-96); MONOCYTES # (AUTO) 0.9 /CMM (0.1-1.30); NEUTROPHILS # (AUTO) 4.4 /CMM (1.8-8.9); NEUTROPHILS % (AUTO) 58.5 % (43.0-81.0); PLATELET COUNT (AUTO) 211 /CMM (150-450); RDW COEFFICIENT OF VARIATION 15.8 (11.5-15.0); RED BLOOD CELL COUNT(AUTO) 4.18 MIL/uL (4.5-6.0); WHITE BLOOD COUNT (AUTO) 7.5 K/uL (4.3-11.0)
[2017-06-21 07:25] LABS: CALCIUM, SERUM 8.5 mg/dL (8.5-10.1); CREATININE 0.7 mg/dL (0.6-1.3); MAGNESIUM 1.7 mg/dL (1.8-2.4); PHOSPHORUS 3.3 mg/dL (2.5-4.9); POTASSIUM 3.8 mmol/L (3.5-5.1)
[2017-06-21 07:27] LABS: THYROID STIMULATING HORMONE 1.844 uIU/mL (0.358-3.74)
[2017-06-21] MEDS ORDERED: METOPROLOL SUCCINATE 25 MG TAB.SR.24H PO SCH (09:00)
[2017-06-21] MEDS: TAMSULOSIN 0.4 MG CAP.SR.24H PO SCH (09:09)
[2017-06-21] MEDS: Magnesium 1GM/D5W 100ML PREMIX 100 ML IV SCH ×2 (09:09→10:09)
[2017-06-21] MEDS: PANTOPRAZOLE 40 MG TABLET.DR PO SCH (09:09)
[2017-06-21] MEDS: AMIODARONE HCL 200 MG TABLET PO SCH (09:10)
[2017-06-21] MEDS: METOPROLOL SUCCINATE 25 MG TAB.SR.24H PO SCH (09:10)
[2017-06-21] MEDS: ASPIRIN EC 81 MG TABLET.DR PO SCH (09:10)
[2017-06-21] MEDS: CLOPIDOGREL BISULFATE 75 MG TABLET PO SCH (09:10)
[2017-06-21] MEDS: LISINOPRIL (5MG) 5 MG TABLET PO SCH (09:11)
[2017-06-21] MEDS: HYDROCODONE/APAP 5/325MG 1 EACH TABLET PO PRN ×3 (10:04→20:38)
[2017-06-21] MEDS: ZOLPIDEM TARTRATE 5 MG TABLET PO PRN (21:59)
[2017-06-21] MEDS: ATORVASTATIN 10 MG TABLET PO SCH (21:59)
[2017-06-22] VITALS (7 sets, daily range): BP systolic 140–160; BP diastolic 71–89
[2017-06-22] MEDS: HYDROCODONE/APAP 5/325MG 1 EACH TABLET PO PRN ×5 (03:26→22:55)
[2017-06-22 07:13] LABS: BASOPHILS % (AUTO) 0.4 % (0.0-2.0); EOSINOPHILS # (AUTO) 0.1 /CMM (0.0-0.7); EOSINOPHILS % (AUTO) 1.3 % (0.0-6.0); HEMATOCRIT 40 % (39-51); HEMOGLOBIN 13.3 g/dL (13.5-17.5); LYMPHOCYTES # (AUTO) 1.7 /CMM (0.8-4.8); LYMPHOCYTES % (AUTO) 20.9 % (20.0-44.0); MEAN CORPUSCULAR HEMOGLOBIN 28 PG (26.0-33.0); MEAN CORPUSCULAR HGB CONC 33 g/dl (31.0-36.0); MEAN CORPUSCULAR VOLUME 84 fL (80-96); MONOCYTES # (AUTO) 0.8 /CMM (0.1-1.30); MONOCYTES % (AUTO) 9.5 % (2.0-12.0); NEUTROPHILS # (AUTO) 5.7 /CMM (1.8-8.9); NEUTROPHILS % (AUTO) 67.9 % (43.0-81.0); PLATELET COUNT (AUTO) 240 /CMM (150-450); RDW COEFFICIENT OF VARIATION 16.1 (11.5-15.0); RED BLOOD CELL COUNT(AUTO) 4.75 MIL/uL (4.5-6.0); WHITE BLOOD COUNT (AUTO) 8.4 K/uL (4.3-11.0)
[2017-06-22 07:30] LABS: ALBUMIN 3.1 g/dL (3.4-5.0); BILIRUBIN,TOTAL 0.5 mg/dL (0.2-1.0); CREATININE 0.8 mg/dL (0.6-1.3); MAGNESIUM 1.9 mg/dL (1.8-2.4); TOTAL PROTEIN, SERUM 6.8 g/dL (6.4-8.2)
[2017-06-22 07:39] LABS: FERRITIN 96 ng/mL (8-388)
[2017-06-22 07:50] LABS: IRON, SERUM 42 ug/dl (50-175); TOTAL IRON BINDING CAPACITY 216 ug/dl (250-450)
[2017-06-22] MEDS: TAMSULOSIN 0.4 MG CAP.SR.24H PO SCH (08:11)
[2017-06-22] MEDS: PANTOPRAZOLE 40 MG TABLET.DR PO SCH (08:11)
[2017-06-22] MEDS: CLOPIDOGREL BISULFATE 75 MG TABLET PO SCH (08:11)
[2017-06-22] MEDS: ASPIRIN EC 81 MG TABLET.DR PO SCH (08:11)
[2017-06-22] MEDS: METOPROLOL SUCCINATE 25 MG TAB.SR.24H PO SCH (08:12)
[2017-06-22] MEDS: LISINOPRIL (5MG) 5 MG TABLET PO SCH (08:12)
[2017-06-22] MEDS: AMIODARONE HCL 200 MG TABLET PO SCH (08:12)
[2017-06-22] MEDS: MORPHINE SULFATE INJ 2 MG/ML DISP.SYRIN IV PRN (10:34)
[2017-06-22] MEDS: FERROUS SULFATE (325 MG) 325 MG/TAB TABLET PO SCH ×2 (15:44→16:52)
[2017-06-22] MEDS: ZOLPIDEM TARTRATE 5 MG TABLET PO PRN (21:08)
[2017-06-22] MEDS: ATORVASTATIN 10 MG TABLET PO SCH (21:08)
[2017-06-23] MEDS: MORPHINE SULFATE INJ 2 MG/ML DISP.SYRIN IV PRN (06:33)
[2017-06-23 07:13] LABS: CALCIUM, SERUM 9.2 mg/dL (8.5-10.1); CREATININE 0.8 mg/dL (0.6-1.3); POTASSIUM 4.5 mmol/L (3.5-5.1)
[2017-06-23 07:25] LABS: BASOPHILS % (AUTO) 0.4 % (0.0-2.0); EOSINOPHILS # (AUTO) 0.1 /CMM (0.0-0.7); EOSINOPHILS % (AUTO) 1.3 % (0.0-6.0); HEMATOCRIT 41 % (39-51); HEMOGLOBIN 13.4 g/dL (13.5-17.5); LYMPHOCYTES % (AUTO) 19.9 % (20.0-44.0); MEAN CORPUSCULAR HEMOGLOBIN 28 PG (26.0-33.0); MEAN CORPUSCULAR HGB CONC 33 g/dl (31.0-36.0); MEAN CORPUSCULAR VOLUME 85 fL (80-96); MONOCYTES % (AUTO) 9.9 % (2.0-12.0); NEUTROPHILS # (AUTO) 6.8 /CMM (1.8-8.9); NEUTROPHILS % (AUTO) 68.5 % (43.0-81.0); PLATELET COUNT (AUTO) 244 /CMM (150-450); RED BLOOD CELL COUNT(AUTO) 4.79 MIL/uL (4.5-6.0)
[2017-06-23] MEDS: PANTOPRAZOLE 40 MG TABLET.DR PO SCH (07:30)
[2017-06-23 08:00] VITALS: BP 136/76
[2017-06-23] MEDS ORDERED: REGADENOSON 0.4 MG/5 ML DISP.SYRIN IVP ONE ×2 (08:00)
[2017-06-23] MEDS ORDERED: METO25TA3 PO (08:39)
[2017-06-23] MEDS ORDERED: FERR325T28 PO (08:39)
[2017-06-23] MEDS: AMIODARONE HCL 200 MG TABLET PO SCH (08:46)
[2017-06-23] MEDS: ASPIRIN EC 81 MG TABLET.DR PO SCH (08:46)
[2017-06-23] MEDS: LISINOPRIL (5MG) 5 MG TABLET PO SCH (08:47)
[2017-06-23] MEDS: FERROUS SULFATE (325 MG) 325 MG/TAB TABLET PO SCH (08:47)
[2017-06-23] MEDS: TAMSULOSIN 0.4 MG CAP.SR.24H PO SCH (08:47)
[2017-06-23] MEDS: CLOPIDOGREL BISULFATE 75 MG TABLET PO SCH (08:47)
[2017-06-23] MEDS: METOPROLOL SUCCINATE 25 MG TAB.SR.24H PO SCH (08:47)
[2017-06-23] MEDS: HYDROCODONE/APAP 5/325MG 1 EACH TABLET PO PRN (12:09)
[2017-06-23 16:00] VITALS: BP 158/83
== END 2017-06-23 17:00 | disposition home or self-care (01) | DRG 180 ==
LOC: ER 17:37 → TELE 21:21 → MED 06-22 09:04
PROVIDERS: ADMIT Nurse Practitioner Acute Care; ATTEND Nurse Practitioner Acute Care
PROC: 02HV33Z Insertion of Infusion Device into Superior Vena Cava, Percutaneous Approach (ICD-10-PCS; principal; 2017-06-23)
PROC: B548ZZA Ultrasonography of Superior Vena Cava, Guidance (ICD-10-PCS; 2017-06-23)
DX: C34.90 Malignant neoplasm of unspecified part of unspecified bronchus or lung (principal); I50.33 Acute on chronic diastolic (congestive) heart failure; N17.9 Acute kidney failure, unspecified; I24.9 Acute ischemic heart disease, unspecified; D64.9 Anemia, unspecified; E11.9 Type 2 diabetes mellitus without complications; E78.5 Hyperlipidemia, unspecified; J44.9 Chronic obstructive pulmonary disease, unspecified; I11.0 Hypertensive heart disease with heart failure; I25.10 Atherosclerotic heart disease of native coronary artery without angina pectoris; I25.2 Old myocardial infarction; Z95.5 Presence of coronary angioplasty implant and graft; N40.0 Benign prostatic hyperplasia without lower urinary tract symptoms; Z79.899 Other long term (current) drug therapy; Z79.82 Long term (current) use of aspirin; F17.200 Nicotine dependence, unspecified, uncomplicated
CPT/HCPCS: 36415; 71045-TC; 80048-TC; 80053-TC; 80061-TC; 82728-TC; 82746; 83540-TC; 83735-TC; 83880; 84100-TC; 84443-TC; 84484-TC; 85025-TC; 85378-TC; 85730-TC; 87081-TC; 93307-TC; A4606; A9502; J0282; J2270; J2405; J2785; J3475; J7060; Z7610

== ENCOUNTER 2017-06-24 17:25 | Emergency (ER) | payer MEDICARE, OTHER ==
[~2017-06-24] VITALS: Ht 182.9 cm; Wt 65.8 kg
[~2017-06-24 17:25] MED LIST changes: -AMIO200T2 PO; +AMIO200T4 PO; +FERR325T28 PO; -IPRA3AMP IH; +IPRA3AMP23 IH
--- NOTE | 2017-06-24 17:45 | NUR ---
PT CAME IN WITH C/O SOB AND RT SIDED CHEST PAIN, H/O RT LUNG CA DIAGNOSED MAY 2017. SEEN BY FOR EVAL. VSS. SAFETY AND COMFORT MEASURES PROVIDED. WILL MONITOR.
--- NOTE | 2017-06-24 18:20 | NUR ---
IV ACCESS STARTED. BLOOD DRAWN FOR LABS. MEDICATED ORDERED.
[2017-06-24] MEDS ORDERED: MORPHINE SULFATE INJ 4 MG/ML DISP.SYRIN ONE (18:36)
[2017-06-24] MEDS ORDERED: ONDANSETRON HCL/PF 4 MG/2 ML VIAL ONE (18:36)
[2017-06-24 18:46] LABS: BASOPHILS # (AUTO) 0.1 /CMM (0.0-0.2); BASOPHILS % (AUTO) 0.5 % (0.0-2.0); EOSINOPHILS % (AUTO) 0.7 % (0.0-6.0); HEMATOCRIT 41 % (39-51); HEMOGLOBIN 13.9 g/dL (13.5-17.5); LYMPHOCYTES # (AUTO) 1.6 /CMM (0.8-4.8); LYMPHOCYTES % (AUTO) 15.1 % (20.0-44.0); MEAN CORPUSCULAR HGB CONC 34 g/dl (31.0-36.0); MEAN CORPUSCULAR VOLUME 83 fL (80-96); MONOCYTES # (AUTO) 1.1 /CMM (0.1-1.30); MONOCYTES % (AUTO) 10.3 % (2.0-12.0); NEUTROPHILS # (AUTO) 7.7 /CMM (1.8-8.9); NEUTROPHILS % (AUTO) 73.4 % (43.0-81.0); PLATELET COUNT (AUTO) 308 /CMM (150-450); RDW COEFFICIENT OF VARIATION 15.1 (11.5-15.0); RED BLOOD CELL COUNT(AUTO) 4.97 MIL/uL (4.5-6.0); WHITE BLOOD COUNT (AUTO) 10.6 K/uL (4.3-11.0)
[2017-06-24 18:55] LABS: CALCIUM, SERUM 9.5 mg/dL (8.5-10.1); CARBON DIOXIDE 31 mmol/L (21-32); CHLORIDE 100 mmol/L (98-107); CREATININE 1.7 mg/dL (0.6-1.3); GLUCOSE 135 mg/dL (74-106); POTASSIUM 4.7 mmol/L (3.5-5.1); SODIUM SERUM 139 mmol/L (136-145); UREA NITROGEN, BLOOD 39 mg/dL (7-18)
[2017-06-24 18:59] LABS: INR 0.98 (0.85-1.15)
[2017-06-24] MEDS ORDERED: ONDANSETRON HCL/PF - ER 4 MG/2 ML VIAL IV ONE (19:00)
[2017-06-24] MEDS ORDERED: MORPHINE SULFATE INJ 2 MG/ML DISP.SYRIN IV ONE (19:00)
[2017-06-24 19:04] LABS: TROPONIN I < 0.017 ng/mL (0.00-0.056)
[2017-06-24 19:11] LABS: B-TYPE NATRIURETIC PEPTIDE 1689 PG/ML (0-125)
--- NOTE | 2017-06-24 19:16 | NUR ---
ASSUMED CARE, RECEIVED REPORT FROM AM SHIFT ALFONSO MARTINEZ. PT RESTING QUIELTY, NO ACUTE DIDTRESS NOTED, RESP EVEN AND UNLABORED. PT DENIES PAIN OR DISCOMFORT AT THIS TIME. WILL CONTINUE TO MONITOR PT CLOSELY.
--- NOTE | 2017-06-24 20:13 | NUR ---
PT AMBULATORY TO THE BATHROOM WITH STEADY GAIT NOTED.
--- NOTE | 2017-06-24 20:26 | NUR ---
REPORT CALLED TO PLATE KEEPER RHEA. PENDING HOSPITAL ADMISSION.
--- NOTE | 2017-06-24 20:45 | NUR ---
ER TALKING TO ARJUN NOLASCO DNP REGARDING PT ADMISSION. WILL TRANSPORT PT VIA ACLS PROTOCOL.
[2017-06-24 21:19] VITALS: BP 129/75
--- NOTE | 2017-06-24 21:19 | NUR ---
IV removed. Catheter intact and site benign. Pressure and 4x4 applied to site. No bleeding noted.Patient discharged to home in stable condition. Written and verbal after care instructions given. Patient verbalizes understanding of instruction. ambulatory with a steady gait
[2017-08-13] MEDS ORDERED: ENOX40DI SQ (23:21)
== END 2017-06-24 20:27 | disposition other institution (70) ==
LOC: ER 17:26 → UNDOADMIN 20:19 → TELE 20:19
DX: R07.9 Chest pain, unspecified (principal); N17.9 Acute kidney failure, unspecified; Z87.891 Personal history of nicotine dependence; Z95.1 Presence of aortocoronary bypass graft; Z99.2 Dependence on renal dialysis; Z79.82 Long term (current) use of aspirin; I25.810 Atherosclerosis of coronary artery bypass graft(s) without angina pectoris; E78.5 Hyperlipidemia, unspecified; E11.9 Type 2 diabetes mellitus without complications; I11.0 Hypertensive heart disease with heart failure; I50.9 Heart failure, unspecified
CPT/HCPCS: 36415; 71045-TC; 80048-TC; 83880; 84484-TC; 85025-TC; 85730-TC; 87081-TC; A4606; J2270; J2405; Z7610

== ENCOUNTER 2017-06-27 09:09 | Outpatient (CLI) | payer MEDICARE, OTHER ==
[2017-06-27] MEDS ORDERED: GADOVERSETAMIDE 2.5 MMOL/5 ML VIAL IJ ONE (09:10)
[2017-08-13] MEDS ORDERED: ENOX40DI SQ (23:21)
== END 2017-06-27 23:59 | disposition home or self-care (01) ==
LOC: MRI 09:09
PROVIDERS: ATTEND Internal Medicine Hematology & Oncology
DX: I67.82 Cerebral ischemia (principal); C34.90 Malignant neoplasm of unspecified part of unspecified bronchus or lung
CPT/HCPCS: 70553; A9579

== ENCOUNTER 2017-07-05 18:23 | Inpatient (IN) | payer MEDICARE, OTHER ==
[~2017-07-05] VITALS: Ht 172.7 cm; Wt 61.2 kg
--- NOTE | 2017-07-05 18:25 | NUR ---
PT TO ED ROOM 098. WEAK/SOB AND CHRONIC R SIDED CHEST PAIN DUE TO LUNG CANCER. A/A/O. CHANGED TO GOWN SIDE RAILS UP. HOB ELEVATED. CONNECTED TO MONITOR. AWAITING FOR ED EVALUATION.
--- NOTE | 2017-07-05 19:00 | NUR ---
AIDE PICC POA.
--- NOTE | 2017-07-05 19:07 | NUR ---
REPORT RECEIVED FROM ALFONSO NEW FOR GAURANG.
[2017-07-05] MEDS ORDERED: MORPHINE SULFATE INJ 4 MG/ML DISP.SYRIN ONE (19:26)
--- NOTE | 2017-07-05 19:29 | NUR ---
BLOOD DRAWN FROM L ARM PICC LINE AND HANDED OVER TO LAB AT BEDSIDE.
[2017-07-05] MEDS ORDERED: MORPHINE SULFATE INJ 2 MG/ML DISP.SYRIN IV ONE (19:30)
[2017-07-05 19:35] LABS: BASOPHILS # (AUTO) 0.1 /CMM (0.0-0.2); HEMATOCRIT 38 % (39-51); HEMOGLOBIN 13.1 g/dL (13.5-17.5); LYMPHOCYTES # (AUTO) 0.6 /CMM (0.8-4.8); LYMPHOCYTES % (AUTO) 5.4 % (20.0-44.0); MEAN CORPUSCULAR HGB CONC 34 g/dl (31.0-36.0); MEAN CORPUSCULAR VOLUME 83 fL (80-96); MONOCYTES # (AUTO) 0.1 /CMM (0.1-1.30); MONOCYTES % (AUTO) 0.9 % (2.0-12.0); NEUTROPHILS # (AUTO) 9.6 /CMM (1.8-8.9); NEUTROPHILS % (AUTO) 92.7 % (43.0-81.0); PLATELET COUNT (AUTO) 266 /CMM (150-450); RDW COEFFICIENT OF VARIATION 15.2 (11.5-15.0); RED BLOOD CELL COUNT(AUTO) 4.63 MIL/uL (4.5-6.0); WHITE BLOOD COUNT (AUTO) 10.4 K/uL (4.3-11.0)
[2017-07-05 19:46] LABS: CALCIUM, SERUM 8.3 mg/dL (8.5-10.1); CARBON DIOXIDE 33 mmol/L (21-32); CHLORIDE 103 mmol/L (98-107); CREATININE 0.9 mg/dL (0.6-1.3); GLUCOSE 139 mg/dL (74-106); POTASSIUM 4.7 mmol/L (3.5-5.1); SODIUM SERUM 139 mmol/L (136-145); UREA NITROGEN, BLOOD 39 mg/dL (7-18)
[2017-07-05 19:49] LABS: INR 0.97 (0.85-1.15)
[2017-07-05 19:55] LABS: TROPONIN I < 0.017 ng/mL (0.00-0.056)
--- NOTE | 2017-07-05 21:00 | NUR ---
PT IS ASSIGNED TO [facility]#: [id number], PT IS DIAGNOSED WITH CHEST PAIN, AND KOTLON ACUNA IS THE ACCEPTING SOFTWARE SUPPORT SPECIALIST
--- NOTE | 2017-07-05 21:31 | NUR ---
REPORT CALLED TO ALFONSO CHIN ON TELE 3RD FOR GAURANG. PT GOING TO TELE 315-2.
--- NOTE | 2017-07-05 21:52 | NUR ---
PT TRANSPORTED VIA STRETCHER TO [facility] 315-2 ON SUPERVISOR WET ROOM WITH RN PER ACLS PROTOCOL.VSS.
[2017-07-05 22:00] VITALS: BP 147/78
[2017-07-05] MEDS ORDERED: ALBUTEROL SULFATE 8 GM HFA.AER.AD IH PRN (22:00)
[2017-07-05] MEDS ORDERED: MAG HYDROX/AL HYDROX/SIMETH 30 ML UDC PO PRN (22:30)
[2017-07-05] MEDS ORDERED: MAGNESIUM HYDROXIDE 30 ML UDC PO PRN (22:30)
[2017-07-05] MEDS ORDERED: ACETAMINOPHEN 325 MG TABLET PO PRN (22:30)
[2017-07-05] MEDS ORDERED: Z GUARD REMEDY 2 OZ OINT TP PRN (22:30)
[2017-07-05] MEDS ORDERED: MORPHINE SULFATE INJ 2 MG/ML DISP.SYRIN IV PRN (22:30)
[2017-07-05] MEDS ORDERED: ONDANSETRON HCL/PF 4 MG/2 ML VIAL IVP PRN (22:30)
--- NOTE | 2017-07-05 22:30 | NUR ---
RN/TELE ADMITTING NOTES: ADMITTED AN 71 YRS OLD FROM E.R. VIA STRETCHER TO 315-2. PT. AMBULATED FROM THE STRETCHER TO THE BATHROOM AND BACK TO BED W/ STEADY GAIT. RA SAT 96 %. NO S/S OF ANY RESPIRATORY DISTRESS NOTED. HAS A PICC LINE ON EDWARD PATENT AND INTACT W/ NO S/S OF INFECTION/INFILTRATION NOTED. CONTINENT OF B/B. ON TELE MONITOR W/ SR 72 W/ BBB. CALL LIGHT W/REACH. WILL CONTINUE TO MONITOR.
[2017-07-06] VITALS: BP 137/78
[2017-07-06] MEDS ORDERED: ZOLPIDEM TARTRATE 5 MG TABLET PO PRN
[2017-07-06] MEDS: IV NS 0.9% 1,000 ML IV SCH ×2 (00:58→11:36)
[2017-07-06] MEDS ORDERED: DEXTROSE 50%-WATER 50 ML DISP.SYRIN IV PRN (01:00)
[2017-07-06] MEDS ORDERED: INSULIN REGULAR, HUMAN 100 UNIT/ML 3 ML VIAL SQ PRN (01:00)
[2017-07-06] MEDS: MORPHINE SULFATE INJ 4 MG/ML DISP.SYRIN IV PRN ×2 (01:27→05:48)
[2017-07-06 04:00] VITALS: BP 148/75
[2017-07-06 04:05] VITALS: BP 148/75
[2017-07-06 04:24] VITALS: BP 148/75
[2017-07-06] MEDS: BLOOD SUGAR DIAGNOSTIC 1 EACH STRIP IN SCH ×2 (06:33→11:45)
[2017-07-06] MEDS ORDERED: IPRATROPIUM NEB FS 0.5 MG/2.5 ML AMPUL.NEB NEB PRN (07:30)
[2017-07-06] MEDS ORDERED: ALBUTEROL FS 2.5 MG/0.5 ML VIAL.NEB NEB PRN (07:35)
[2017-07-06 07:43] LABS: HEMATOCRIT 40 % (39-51); HEMOGLOBIN 13.2 g/dL (13.5-17.5); LYMPHOCYTES % (AUTO) 9.5 % (20.0-44.0); MEAN CORPUSCULAR HGB CONC 33 g/dl (31.0-36.0); MEAN CORPUSCULAR VOLUME 85 fL (80-96); MONOCYTES # (AUTO) 0.3 /CMM (0.1-1.30); MONOCYTES % (AUTO) 2.7 % (2.0-12.0); NEUTROPHILS # (AUTO) 9.2 /CMM (1.8-8.9); NEUTROPHILS % (AUTO) 87.8 % (43.0-81.0); PLATELET COUNT (AUTO) 249 /CMM (150-450); RDW COEFFICIENT OF VARIATION 16.4 (11.5-15.0); RED BLOOD CELL COUNT(AUTO) 4.69 MIL/uL (4.5-6.0); WHITE BLOOD COUNT (AUTO) 10.4 K/uL (4.3-11.0)
[2017-07-06 08:00] VITALS: BP 158/74
--- NOTE | 2017-07-06 08:00 | NUR ---
RN NOTES RECEIVED PATIENT IN THE BED A/O X3/4, PATIENT ON TELE SR-72, V/S TAKEN STABLE. SCHEDULED MEDICATION ADMINISTERED. PATIENT HAS NO ACUTE RESPIRATORY DISTRESS. PATIENT C/O PAIN AT THIS TIME ADMINISTERED TYLENOL 650 MG PO PRN. PATIENT ON PICC LINE ON LEFT UPPER ARM INFUSING AT 75 ML/HR. NEEDS ATTENDED AND ANTICIPATED. PATIENT AMBULATORY, USING BATHROOM. CALL LIGHT WITHIN TO REACH. CONTINUED MONITORING.
[2017-07-06 08:07] LABS: CALCIUM, SERUM 8.7 mg/dL (8.5-10.1); CREATININE 0.7 mg/dL (0.6-1.3); MAGNESIUM 27.2 mg/dL (1.8-2.4); PHOSPHORUS 3.4 mg/dL (2.5-4.9); POTASSIUM 4.3 mmol/L (3.5-5.1)
[2017-07-06] MEDS ORDERED: FENTANYL PF 100MCG/2ML AMPUL IV PRN (08:30)
[2017-07-06 08:35] LABS: THYROID STIMULATING HORMONE 0.747 uIU/mL (0.358-3.74)
[2017-07-06] MEDS ORDERED: AMIODARONE HCL 200 MG TABLET PO SCH (09:00)
[2017-07-06] MEDS ORDERED: ASPIRIN EC 81 MG TABLET.DR PO SCH (09:00)
[2017-07-06] MEDS ORDERED: PANTOPRAZOLE 40 MG VIAL IV SCH (09:00)
[2017-07-06] MEDS ORDERED: CLOPIDOGREL BISULFATE 75 MG TABLET PO SCH (09:00)
[2017-07-06] MEDS ORDERED: FERROUS SULFATE (325 MG) 325 MG/TAB TABLET PO SCH (09:00)
[2017-07-06] MEDS ORDERED: TAMSULOSIN 0.4 MG CAP.SR.24H PO SCH (09:00)
[2017-07-06] MEDS ORDERED: METOPROLOL SUCCINATE 25 MG TAB.SR.24H PO SCH (09:00)
[2017-07-06] MEDS ORDERED: LISINOPRIL (5MG) 5 MG TABLET PO SCH (09:00)
--- NOTE | 2017-07-06 11:00 | NUR ---
RN NOTES PATIENT GOING TO D/C HOME PER NICKY TAN PHONE BANKER WITH PAIN MEDICATION, AND WILL FOLLOW CANCER MD CA. CONTINUED MONITORING.
[2017-07-06] MEDS ORDERED: HYDR-552 PO (11:38)
[2017-07-06] MEDS ORDERED: MORP10CA11 PO (11:46)
[2017-07-06 12:00] VITALS: BP 142/82
--- NOTE | 2017-07-06 13:40 | NUR ---
DISCHARGE NOTES PATIENT GOING TO D/C HOME AT THI TIME. PATIENT MED COMPLIANT, V/S STABLE, PAIN MEDICATION WERE ADMINISTERED FOR PAIN EFFECTIVE. MED RECONCILIATION AND DISCHARGE ORDER REVIEWED AND EXPLAINED TO. PATIENT VERBALIZED UNDERSTANDING. BELONGING WITH THE PATIENT. MEDICATION PRESCRIPTION GIVEN TO PATIENT.PATIENT WILL FOLLOW PRIMARY MD, AND HAS A APPOINTMENT ON 07/08/17 [address] CA. ESCORTED PATIENT TO THE [facility] FOR SAFETY. PATIENT [employer] AND [employer]ACTICS INSTRUCTOR BY .
[2017-07-06] MEDS ORDERED: ATORVASTATIN 10 MG TABLET PO SCH (18:00)
[2017-08-13] MEDS ORDERED: ENOX40DI SQ (23:21)
== END 2017-07-06 13:30 | disposition home or self-care (01) | DRG 180 ==
LOC: ER 18:32 → TELE 21:15 → MED 07-06 09:03
PROVIDERS: ADMIT Registered Nurse; ATTEND Registered Nurse
DX: C34.90 Malignant neoplasm of unspecified part of unspecified bronchus or lung (principal); N17.0 Acute kidney failure with tubular necrosis; I48.91 Unspecified atrial fibrillation; E86.0 Dehydration; D64.81 Anemia due to antineoplastic chemotherapy; J43.9 Emphysema, unspecified; R06.89 Other abnormalities of breathing; E11.9 Type 2 diabetes mellitus without complications; E78.5 Hyperlipidemia, unspecified; G47.9 Sleep disorder, unspecified; I25.10 Atherosclerotic heart disease of native coronary artery without angina pectoris; I10 Essential (primary) hypertension; N40.0 Benign prostatic hyperplasia without lower urinary tract symptoms; Z87.891 Personal history of nicotine dependence; Z95.1 Presence of aortocoronary bypass graft; R79.89 Other specified abnormal findings of blood chemistry
CPT/HCPCS: 36415; 71045-TC; 80048-TC; 80061-TC; 82962-TC; 83540-TC; 83735-TC; 83880; 84100-TC; 84443-TC; 84484-TC; 85025-TC; 85730-TC; 87081-TC; A4606; C9113; J1815; J2270; J3010; J7030; Z7610

== ENCOUNTER → 2017-07-10 | Day surgery (SDC) | payer MEDICARE, OTHER ==
[~2017-07-10] MED LIST changes: +ACET-868 PO; +ACET100V4 HHN; +ALBU2.5V38 IH; +ANESTHESIA TRAY IN PYXIS 1 EA TRAY MC ONE; +BENZ-13 PO; +BISA10SU61 RC; +DOCU-141 PO; +DULO30CA2 PO; +ENOX40DI SQ; +FENTANYL PF 100MCG/2ML AMPUL ONE; +HEPARIN SODIUM, PORCINE 1,000 UNIT/ML VIAL ONE; +HYDR-548 PO; +HYDR-552 PO; +IPRA0.2S9 IH; +LIDOCAINE 1% INJ 50 ML MDV IJ ONE; +LORA1TAB PO; +MAGN400O6 PO; +MEGE400O4 PO; +MIDAZOLAM HCL 2 MG/2ML VIAL ONE; +MORP10CA11 PO; +NA P133E RC; +NUT.237L28 PO; +PANT40TA2 PO; +SEVOFLURANE 250 ML BOTTLE IH ONE; +SUCCINYLCHOLINE CHLORIDE 20 MG/ML VIAL ONE; +ZOLP10TA2 PO
== END | disposition home or self-care (01) ==
LOC: DS 05:53
PROVIDERS: ATTEND Thoracic Surgery (Cardiothoracic Vascular Surgery)
DX: C34.91 Malignant neoplasm of unspecified part of right bronchus or lung (principal); I10 Essential (primary) hypertension; E78.00 Pure hypercholesterolemia, unspecified; I25.10 Atherosclerotic heart disease of native coronary artery without angina pectoris; J44.9 Chronic obstructive pulmonary disease, unspecified; Z95.1 Presence of aortocoronary bypass graft; I25.2 Old myocardial infarction
CPT/HCPCS: 71045-TC; J0330; J0690; J1644; J2250; J2704; J3010; J3490

== ENCOUNTER 2017-07-15 08:45 | Outpatient (CLI) | payer MEDICARE, OTHER ==
[~2017-07-15 08:45] MED LIST changes: -ACET-868 PO; -ACET100V4 HHN; -ALBU2.5V38 IH; -ANESTHESIA TRAY IN PYXIS 1 EA TRAY MC ONE; -BENZ-13 PO; -BISA10SU61 RC; -DOCU-141 PO; -DULO30CA2 PO; -ENOX40DI SQ; -FENTANYL PF 100MCG/2ML AMPUL ONE; -HEPARIN SODIUM, PORCINE 1,000 UNIT/ML VIAL ONE; -HYDR-548 PO; -IPRA0.2S9 IH; -LIDOCAINE 1% INJ 50 ML MDV IJ ONE; -LORA1TAB PO; -MAGN400O6 PO; -MEGE400O4 PO; -MIDAZOLAM HCL 2 MG/2ML VIAL ONE; -NA P133E RC; -NUT.237L28 PO; -PANT40TA2 PO; -SEVOFLURANE 250 ML BOTTLE IH ONE; -SUCCINYLCHOLINE CHLORIDE 20 MG/ML VIAL ONE; -ZOLP10TA2 PO
[2017-07-15 09:08] LABS: BASOPHILS % (AUTO) 0.5 % (0.0-2.0); EOSINOPHILS % (AUTO) 0.4 % (0.0-6.0); HEMATOCRIT 38 % (39-51); HEMOGLOBIN 12.4 g/dL (13.5-17.5); LYMPHOCYTES # (AUTO) 0.9 /CMM (0.8-4.8); LYMPHOCYTES % (AUTO) 15.9 % (20.0-44.0); MEAN CORPUSCULAR HGB CONC 33 g/dl (31.0-36.0); MEAN CORPUSCULAR VOLUME 84 fL (80-96); MONOCYTES # (AUTO) 0.6 /CMM (0.1-1.30); MONOCYTES % (AUTO) 10.4 % (2.0-12.0); NEUTROPHILS # (AUTO) 3.9 /CMM (1.8-8.9); NEUTROPHILS % (AUTO) 72.8 % (43.0-81.0); PLATELET COUNT (AUTO) 165 /CMM (150-450); RDW COEFFICIENT OF VARIATION 16.4 (11.5-15.0); RED BLOOD CELL COUNT(AUTO) 4.49 MIL/uL (4.5-6.0); WHITE BLOOD COUNT (AUTO) 5.4 K/uL (4.3-11.0)
[2017-07-15 09:54] LABS: ALBUMIN 2.7 g/dL (3.4-5.0); BILIRUBIN,TOTAL 0.4 mg/dL (0.2-1.0); CALCIUM, SERUM 8.7 mg/dL (8.5-10.1); CREATININE 0.7 mg/dL (0.6-1.3); POTASSIUM 3.9 mmol/L (3.5-5.1)
[2017-08-13] MEDS ORDERED: ENOX40DI SQ (23:21)
== END 2017-07-15 23:59 | disposition home or self-care (01) ==
LOC: LAB 08:45
PROVIDERS: ATTEND Internal Medicine Hematology & Oncology
DX: C34.91 Malignant neoplasm of unspecified part of right bronchus or lung (principal)
CPT/HCPCS: 36415; 80053-TC; 85025-TC

== ENCOUNTER 2017-07-28 09:14 | Outpatient (CLI) | payer MEDICARE, OTHER ==
[2017-07-28 09:38] LABS: BASOPHILS % (AUTO) 0.7 % (0.0-2.0); EOSINOPHILS % (AUTO) 0.7 % (0.0-6.0); HEMATOCRIT 37 % (39-51); HEMOGLOBIN 12.4 g/dL (13.5-17.5); LYMPHOCYTES % (AUTO) 15.3 % (20.0-44.0); MEAN CORPUSCULAR HGB CONC 34 g/dl (31.0-36.0); MEAN CORPUSCULAR VOLUME 83 fL (80-96); MONOCYTES # (AUTO) 0.8 /CMM (0.1-1.30); MONOCYTES % (AUTO) 12.4 % (2.0-12.0); NEUTROPHILS # (AUTO) 4.4 /CMM (1.8-8.9); NEUTROPHILS % (AUTO) 70.9 % (43.0-81.0); PLATELET COUNT (AUTO) 354 /CMM (150-450); RDW COEFFICIENT OF VARIATION 16.5 (11.5-15.0); RED BLOOD CELL COUNT(AUTO) 4.47 MIL/uL (4.5-6.0); WHITE BLOOD COUNT (AUTO) 6.3 K/uL (4.3-11.0)
[2017-07-28 09:57] LABS: ALBUMIN 3.2 g/dL (3.4-5.0); BILIRUBIN,TOTAL 0.3 mg/dL (0.2-1.0); CALCIUM, SERUM 9.3 mg/dL (8.5-10.1); POTASSIUM 4.5 mmol/L (3.5-5.1); TOTAL PROTEIN, SERUM 7.4 g/dL (6.4-8.2)
[2017-08-13] MEDS ORDERED: ENOX40DI SQ (23:21)
== END 2017-07-28 23:59 | disposition home or self-care (01) ==
LOC: LAB 09:14
PROVIDERS: ATTEND Internal Medicine Hematology & Oncology
DX: C34.91 Malignant neoplasm of unspecified part of right bronchus or lung (principal)
CPT/HCPCS: 36415; 80053-TC; 85025-TC

== ENCOUNTER 2017-08-04 08:08 | Outpatient (CLI) | payer MEDICARE, OTHER ==
[2017-08-04 08:49] LABS: ALBUMIN 2.8 g/dL (3.4-5.0); BILIRUBIN,TOTAL 0.9 mg/dL (0.2-1.0); CALCIUM, SERUM 8.6 mg/dL (8.5-10.1); CREATININE 0.9 mg/dL (0.6-1.3); POTASSIUM 4.1 mmol/L (3.5-5.1); TOTAL PROTEIN, SERUM 6.6 g/dL (6.4-8.2)
[2017-08-04 09:12] LABS: EOSINOPHILS % (AUTO) 0.2 % (0.0-6.0); HEMATOCRIT 34 % (39-51); HEMOGLOBIN 11.5 g/dL (13.5-17.5); LYMPHOCYTES # (AUTO) 0.7 /CMM (0.8-4.8); LYMPHOCYTES % (AUTO) 9.3 % (20.0-44.0); MEAN CORPUSCULAR HGB CONC 34 g/dl (31.0-36.0); MEAN CORPUSCULAR VOLUME 84 fL (80-96); MONOCYTES # (AUTO) 0.2 /CMM (0.1-1.30); MONOCYTES % (AUTO) 2.4 % (2.0-12.0); NEUTROPHILS # (AUTO) 7.1 /CMM (1.8-8.9); NEUTROPHILS % (AUTO) 88.1 % (43.0-81.0); PLATELET COUNT (AUTO) 238 /CMM (150-450); RDW COEFFICIENT OF VARIATION 16.4 (11.5-15.0); RED BLOOD CELL COUNT(AUTO) 4.06 MIL/uL (4.5-6.0)
[2017-08-13] MEDS ORDERED: ENOX40DI SQ (23:21)
== END 2017-08-04 23:59 | disposition home or self-care (01) ==
LOC: LAB 08:08
PROVIDERS: ATTEND Internal Medicine Hematology & Oncology
DX: C34.91 Malignant neoplasm of unspecified part of right bronchus or lung (principal)
CPT/HCPCS: 36415; 80053-TC; 85025-TC

== ENCOUNTER 2017-08-08 12:47 | Inpatient (IN) | payer MEDICARE, OTHER ==
[~2017-08-08] VITALS: Ht 175.3 cm; Wt 57.6 kg
--- NOTE | 2017-08-08 12:50 | NUR ---
AAOX3, BIB FAMILY C/O SOB AND WORSENING WEAKNESS. RR IS EVEN AND UNLABORED WITH NAD NOTED. SKIN IS WARM AND NON DIAPHORETIC. AWAITING MD FOR EVAL.
[2017-08-08 13:30] LABS: HEMATOCRIT 32 % (39-51); HEMOGLOBIN 11.1 g/dL (13.5-17.5); LYMPHOCYTES # (AUTO) 0.1 /CMM (0.8-4.8); LYMPHOCYTES % (AUTO) 3.2 % (20.0-44.0); MEAN CORPUSCULAR HGB CONC 35 g/dl (31.0-36.0); MEAN CORPUSCULAR VOLUME 82 fL (80-96); MONOCYTES # (AUTO) 0.1 /CMM (0.1-1.30); MONOCYTES % (AUTO) 1.5 % (2.0-12.0); NEUTROPHILS # (AUTO) 3.9 /CMM (1.8-8.9); NEUTROPHILS % (AUTO) 94.3 % (43.0-81.0); PLATELET COUNT (AUTO) 156 /CMM (150-450); RDW COEFFICIENT OF VARIATION 15.6 (11.5-15.0); WHITE BLOOD COUNT (AUTO) 4.1 K/uL (4.3-11.0)
--- NOTE | 2017-08-08 13:35 | NUR ---
NEW IV STARTED ON RAC, 20G. BLOOD DRAWN AND SENT TO LAB.
[2017-08-08 13:39] LABS: CALCIUM, SERUM 8.5 mg/dL (8.5-10.1); CARBON DIOXIDE 30 mmol/L (21-32); CHLORIDE 97 mmol/L (98-107); CREATININE 1.1 mg/dL (0.6-1.3); GLUCOSE 174 mg/dL (74-106); POTASSIUM 4.2 mmol/L (3.5-5.1); SODIUM SERUM 133 mmol/L (136-145); UREA NITROGEN, BLOOD 40 mg/dL (7-18)
[2017-08-08 13:49] LABS: TROPONIN I < 0.017 ng/mL (0.00-0.056)
[2017-08-08] MEDS ORDERED: IV NS 0.9% 500 ML IV ONE (14:15)
[2017-08-08] MEDS ORDERED: CT SWABBABLE VALVE TRANS SET 1 EA INFUS.SET MC ONE (14:15)
[2017-08-08] MEDS ORDERED: IOHEXOL-350 100 ML VIAL IV ONE (14:15)
[2017-08-08] MEDS ORDERED: Magnesium 1GM/D5W 100ML PREMIX 200 ML IV ONE ×2 (14:20→14:37)
[2017-08-08] MEDS ORDERED: DEXAMETHASONE SOD PHOSPHATE 10 MG/ML VIAL IV ONE (14:30)
[2017-08-08] MEDS ORDERED: IPRATROPIUM NEB FS 0.5 MG/2.5 ML AMPUL.NEB NEB ONE (14:30)
[2017-08-08] MEDS ORDERED: ALBUTEROL FS 2.5 MG/3 ML VIAL.NEB CONTNEB ONE (14:30)
[2017-08-08] MEDS ORDERED: DEXAMETHASONE SOD PHOSPHATE 10 MG/ML VIAL ONE (14:37)
[2017-08-08] MEDS ORDERED: ALBUTEROL FS 2.5 MG/3 ML VIAL.NEB ONE (14:50)
[2017-08-08] MEDS ORDERED: IPRATROPIUM NEB FS 0.5 MG/2.5 ML AMPUL.NEB ONE (14:50)
--- NOTE | 2017-08-08 15:11 | NUR ---
LYNNE PAGED, ARJUN NOLASCO CATTLE BROKER
[2017-08-08] MEDS ORDERED: PIPERACILLIN /TAZOBACTAM 3.375 G in IV D5W 50 ML IV ONE (15:30)
--- NOTE | 2017-08-08 15:43 | NUR ---
TELE 120-2 FOR COPD EXACERBATION AND PNEUMONIA, ACCEPTED BY ARJUN NOLASCO
--- NOTE | 2017-08-08 15:58 | NUR ---
REPORT GIVEN TO ANNIA HAMILTON FOR GAURANG UPON ADMISSION.
[2017-08-08] MEDS ORDERED: IV NS 0.9% 1,000 ML BAG IV ONE (16:00)
--- NOTE | 2017-08-08 16:10 | NUR ---
PATIENT TRANSPORTED TO [facility] VIA ACLS PROTOCOL. RNANNIA TO PROVIDE GAURANG.
[2017-08-08 16:30] VITALS: BP 115/58
--- NOTE | 2017-08-08 16:30 | NUR ---
ADMITTED PT FROM ER WITH C/O SOB AND GEN WEAKNESS.DX COPD EXACERBATION.WITH O2 AT 2L/MIN VIA N/C.O2 SAT 92-95%.ALERT AND ORIENTED X4.VERBALLY RESPONSIVE.AMBULATES AD MATT WITH STAEDY GAIT.WITH BRP.SKIN INTACT.WITH OLD RT CHEST WALL PORT A CATH DUE TO CHEMO USE.WITH RT AC INTACT.SEEN BY DR WINTERS WITH ORDERS.NOTIFIED DR WINTERS FOR MED RECON AND ADMITTING ORDERS.PT DENIES ANY PAIN OR DISTRESS.CALL LIGHT PLACED WITHIN REACH`.
[2017-08-08] MEDS ORDERED: MAGNESIUM HYDROXIDE 30 ML UDC PO PRN (17:30)
[2017-08-08] MEDS ORDERED: ZOLPIDEM TARTRATE 5 MG TABLET PO PRN (17:30)
[2017-08-08] MEDS ORDERED: Z GUARD REMEDY 2 OZ OINT TP PRN (17:30)
[2017-08-08] MEDS ORDERED: ONDANSETRON HCL/PF 4 MG/2 ML VIAL IVP PRN (17:30)
[2017-08-08] MEDS ORDERED: FEE PK DOSING 1 MIN EA MC ONE (17:33)
[2017-08-08] MEDS: IV NS 0.9% 1,000 ML IV PRN (17:34)
[2017-08-08] MEDS: ENOXAPARIN SODIUM 40 MG/0.4 ML DISP.SYRIN SQ SCH ×2 (17:35→20:21)
--- NOTE | 2017-08-08 19:20 | NUR ---
PT VERBALIZED GETTING RADIATION AND CHEMO TX FOR HIS RT LUNG CA WHICH IS THE REASON WHY HE HAS THE PORT-A CATH.
--- NOTE | 2017-08-08 19:21 | NUR ---
PT DENIES ANY SOB OR DISCOMFORT AT THIS TIME.WITH O2 AT 2L/MIN VIA NC WHILE WATCHING TV.WITH ONGOING IVF OF NS AT 75 ML/HR INFUSING WELL TO RT AC.CALL LIGHT PLACED WITHIN REACH.
[2017-08-08 20:00] VITALS: BP 124/50
--- NOTE | 2017-08-08 20:00 | NUR ---
ITALO RN NOTES RECEIVED BEDSIDE REPORT FROM AM NURSE. PT IN BED , A/O X4, ON DIP TANKER AFIB WITH HR OF 100 BPM, B/P 124/50, RR-18, T-98.4.HOB IS ELEVATED AT 55 DEGREE ANGLE,NO SOB OR ACUTE DISTRESS NOTED AT THIS TIME. 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 SAFETY MEASURES ARE IMPLEMENTED, BED IN LOWEST POSITION, LOCKED,CALL LIGHT WITHIN REACH.WILL CONTINUE TO MONITOR.
[2017-08-08] MEDS: VANCOMYCIN 0.75 GM in IV NS 0.9% 250 ML IV SCH (20:14)
[2017-08-08 20:15] VITALS: BP 124/50
[2017-08-08] MEDS: ZOLPIDEM TARTRATE 10 MG TABLET PO PRN (21:36)
[2017-08-08] MEDS: MORPHINE SULFATE SR 15 MG TABLET.SA PO SCH (21:37)
[2017-08-08] MEDS: ATORVASTATIN 40 MG TABLET PO SCH (22:59)
[2017-08-08] MEDS: ALBUTEROL FS 2.5 MG/0.5 ML VIAL.NEB NEB SCH (23:49)
[2017-08-08] MEDS: IPRATROPIUM NEB FS 0.5 MG/2.5 ML AMPUL.NEB NEB SCH (23:49)
[2017-08-09] VITALS: BP 142/77
[2017-08-09] MEDS: IPRATROPIUM NEB FS 0.5 MG/2.5 ML AMPUL.NEB NEB SCH ×5 (03:27→20:24)
[2017-08-09] MEDS: ALBUTEROL FS 2.5 MG/0.5 ML VIAL.NEB NEB SCH ×5 (03:27→20:24)
[2017-08-09 04:00] VITALS: BP 122/63
[2017-08-09] MEDS: VANCOMYCIN 0.75 GM in IV NS 0.9% 250 ML IV SCH (04:20)
[2017-08-09] MEDS: PIPERACILLIN /TAZOBACTAM 3.375 G in IV D5W 50 ML IV SCH ×6 (05:31→23:10)
--- NOTE | 2017-08-09 06:28 | NUR ---
ITALO RN NOTES PATIENT IS IN BED RESTING, NO ACUTE CHANGES, NO SOB NOTED AT THIS TIME.VITAL SIGNS ARE WNL, IV NS 75ML/HR RUNNING, MEDICATION ADMINISTRATION AND PT CARE ARE DONE IN TIMELY MANNERS. PT IS ON 2L OXYGEN VIA NC WITH SATURATION OF 98%. PATIENT CARE WILL BE ENDORSE TO AM NURSE.
[2017-08-09 06:58] LABS: EOSINOPHILS % (AUTO) 0.1 % (0.0-6.0); HEMATOCRIT 28 % (39-51); HEMOGLOBIN 9.6 g/dL (13.5-17.5); LYMPHOCYTES # (AUTO) 0.1 /CMM (0.8-4.8); LYMPHOCYTES % (AUTO) 3.7 % (20.0-44.0); MEAN CORPUSCULAR HGB CONC 34 g/dl (31.0-36.0); MEAN CORPUSCULAR VOLUME 83 fL (80-96); MONOCYTES % (AUTO) 0.7 % (2.0-12.0); NEUTROPHILS # (AUTO) 1.7 /CMM (1.8-8.9); NEUTROPHILS % (AUTO) 95.5 % (43.0-81.0); PLATELET COUNT (AUTO) 115 /CMM (150-450); RED BLOOD CELL COUNT(AUTO) 3.43 MIL/uL (4.5-6.0)
[2017-08-09 07:10] LABS: WHITE BLOOD COUNT (AUTO) 1.8 K/uL (4.3-11.0)
[2017-08-09 07:16] LABS: ALBUMIN 2.1 g/dL (3.4-5.0); BILIRUBIN,TOTAL 0.4 mg/dL (0.2-1.0); CALCIUM, SERUM 8.3 mg/dL (8.5-10.1); CREATININE 0.8 mg/dL (0.6-1.3); MAGNESIUM 1.6 mg/dL (1.8-2.4); PHOSPHORUS 2.4 mg/dL (2.5-4.9); POTASSIUM 3.9 mmol/L (3.5-5.1); TOTAL PROTEIN, SERUM 5.9 g/dL (6.4-8.2)
[2017-08-09 07:33] LABS: THYROID STIMULATING HORMONE 0.233 uIU/mL (0.358-3.74)
[2017-08-09 08:00] VITALS: BP 141/79
[2017-08-09] MEDS ORDERED: FERROUS SULFATE (325 MG) 325 MG/TAB TABLET PO SCH (09:00)
[2017-08-09] MEDS ORDERED: PANTOPRAZOLE 40 MG VIAL IV SCH (09:00)
[2017-08-09] MEDS ORDERED: ASPIRIN EC 81 MG TABLET.DR PO SCH (09:00)
[2017-08-09] MEDS ORDERED: CLOPIDOGREL BISULFATE 75 MG TABLET PO SCH (09:00)
[2017-08-09] MEDS: METOPROLOL SUCCINATE 50 MG TAB.SR.24H PO SCH (09:12)
[2017-08-09] MEDS: AMIODARONE HCL 200 MG TABLET PO SCH (09:13)
[2017-08-09] MEDS: LISINOPRIL (5MG) 5 MG TABLET PO SCH (09:14)
[2017-08-09] MEDS: TAMSULOSIN 0.4 MG CAP.SR.24H PO SCH (09:14)
[2017-08-09] MEDS: methylPREDNISolone SOD SUCC 125 MG/2ML VIAL IV SCH ×3 (09:16→16:20)
[2017-08-09] MEDS: MORPHINE SULFATE SR 15 MG TABLET.SA PO SCH ×2 (09:16→20:09)
[2017-08-09 09:40] LABS: BAND % (MANUAL) 13 % (0.0-5.0); LYMPHOCYTES % (MANUAL) 3 % (16-48); NEUTROPHILS % (MANUAL) 84 (42-76)
[2017-08-09] MEDS: IV NS 0.9% 1,000 ML IV PRN (11:06)
[2017-08-09] MEDS: PANTOPRAZOLE 40 MG TABLET.DR PO SCH (11:07)
[2017-08-09] MEDS ORDERED: K PHOS NEUTRAL 250 MG TABLET PO ONE (11:30)
[2017-08-09] MEDS: TBO-FILGRASTIM 300 MCG/0.5 ML SYRINGE SQ SCH (11:51)
[2017-08-09] MEDS: Magnesium 1GM/D5W 100ML PREMIX 100 ML IV SCH ×2 (11:53→13:09)
[2017-08-09 12:00] VITALS: BP_SYST 114; BP_SYST 137; BP_DIAS 51; BP_DIAS 66
[2017-08-09] MEDS: HYDROCODONE/APAP 10/325MG 1 EA TABLET PO PRN ×2 (13:42→21:47)
[2017-08-09] MEDS: BENZONATATE 100 MG CAPSULE PO PRN (13:44)
[2017-08-09 16:00] VITALS: BP_SYST 138; BP_SYST 91; BP_DIAS 44; BP_DIAS 75
[2017-08-09] MEDS ORDERED: VANCOMYCIN 0.75 GM in IV D5W 250 ML IV SCH (16:00)
[2017-08-09] MEDS: VANCOMYCIN 1 GM in IV D5W 250 ML IV SCH (16:19)
--- NOTE | 2017-08-09 19:30 | NUR ---
HELMET COVERER NOTE RECEIVED PATIENT FROM DAY SHIFT, PATIENT IS ALERT AND ORIENTEDX4, FAMILY AT BED SIDE, NO S/S OF RESPIRATORY DISTRESS AND COMPLAINS OF MILD PAIN ON HIS RIGHT UPPER EXTREMITY. IV ON RIGHT AC IS PATENT AND INTACT, FLUID IS RUNNING. TELE SR 73. SRX2, BED IN LOW POSITION, CALL LIGHT WITHIN REACH, WILL CONTINUE TO MONITOR PATIENT.
--- NOTE | 2017-08-09 19:55 | NUR ---
TELE BASIN TENDER NOTES, PATIENT IS IN BED RESTING, NO ACUTE CHANGES, NO SOB NOTED AT THIS TIME. VITAL SIGNS ARE WNL, IV NS 75ML/HR RUNNING, MEDICATION ADMINISTRATION AND PATIENT CARE ARE DONE IN TIMELY MANNERS. PT IS ON 2L OXYGEN VIA NC WITH SATURATION OF 98%. PATIENT CARE WILL BE ENDORSE TO MEDICAL RECORD CODER NURSE FOR GAURANG. PATIENT TO CONTINUE ANTIBIOTIC TREATMENT.
[2017-08-09 20:00] VITALS: BP 119/64
[2017-08-09] MEDS: ENOXAPARIN SODIUM 40 MG/0.4 ML DISP.SYRIN SQ SCH (21:47)
[2017-08-09] MEDS: ATORVASTATIN 40 MG TABLET PO SCH (21:47)
--- NOTE | 2017-08-09 22:10 | NUR ---
AED TRAINER NOTE PATIENT ACCIDENTALLY PULLED OUT HIS IV WHEN HE TRIED TO GO TO THE RESTROOM. WILL ATTEMPT TO REINSERT IT. Addendum: 08/10/17 at 0001 by CAS BRADY RN LEFT FA 20G REINSERTED.
[2017-08-09] MEDS: ZOLPIDEM TARTRATE 10 MG TABLET PO PRN (23:10)
[2017-08-10] VITALS: BP 136/68
[2017-08-10] MEDS: ALBUTEROL FS 2.5 MG/0.5 ML VIAL.NEB NEB SCH ×6 (00:11→20:15)
[2017-08-10] MEDS: IPRATROPIUM NEB FS 0.5 MG/2.5 ML AMPUL.NEB NEB SCH ×6 (00:11→20:15)
[2017-08-10 03:09] LABS: BASOPHILS % (AUTO) 0.2 % (0.0-2.0); HEMATOCRIT 26 % (39-51); HEMOGLOBIN 8.9 g/dL (13.5-17.5); LYMPHOCYTES # (AUTO) 0.1 /CMM (0.8-4.8); LYMPHOCYTES % (AUTO) 3.2 % (20.0-44.0); MEAN CORPUSCULAR HGB CONC 34 g/dl (31.0-36.0); MEAN CORPUSCULAR VOLUME 82 fL (80-96); MONOCYTES % (AUTO) 2.7 % (2.0-12.0); NEUTROPHILS # (AUTO) 1.6 /CMM (1.8-8.9); NEUTROPHILS % (AUTO) 93.9 % (43.0-81.0); PLATELET COUNT (AUTO) 101 /CMM (150-450); RDW COEFFICIENT OF VARIATION 16.4 (11.5-15.0); RED BLOOD CELL COUNT(AUTO) 3.21 MIL/uL (4.5-6.0)
[2017-08-10 03:15] LABS: WHITE BLOOD COUNT (AUTO) 1.7 K/uL (4.3-11.0)
[2017-08-10 03:20] LABS: CREATININE 0.8 mg/dL (0.6-1.3); MAGNESIUM 1.7 mg/dL (1.8-2.4); POTASSIUM 3.7 mmol/L (3.5-5.1)
[2017-08-10 03:51] LABS: BAND % (MANUAL) 4 % (0.0-5.0); LYMPHOCYTES % (MANUAL) 4 % (16-48); MONOCYTES % (MANUAL) 2 % (0-11.0); NEUTROPHILS % (MANUAL) 90 (42-76)
[2017-08-10 04:00] VITALS: BP 144/77
[2017-08-10] MEDS: VANCOMYCIN 1 GM in IV D5W 250 ML IV SCH ×2 (04:05→15:44)
[2017-08-10] MEDS: PIPERACILLIN /TAZOBACTAM 3.375 G in IV D5W 50 ML IV SCH ×4 (04:51→23:53)
--- NOTE | 2017-08-10 06:38 | NUR ---
INTERSTATE PLANNER NOTE PATIENT IS IN BED RESTING, NO ACUTE CHANGES, NO SOB NOTED AT THIS TIME.VITAL SIGNS ARE WNL, IV NS 75ML/HR RUNNING, MEDICATION ADMINISTRATION, PT IS ON 2L OXYGEN VIA NC WITH SATURATION OF 98%. WILL ENDORSE TO DAY SHIFT FOR GAURANG.
--- NOTE | 2017-08-10 07:24 | NUR ---
RN NOTES RECEIVED PT A&0X3, ON 2L NC SATING WELL NO SOB OR DISTRESS. SR ON THE TELE MONTRELL HR 88. LFA 20G IV SITE INT ACT WITH IVF AT 75ML/HR. BED LOCKED AND IN LOWEST POSITION, CALL LIGHT WITHIN REACH, SIDE RAILS UPX3, WILL CONT TO MONTRELL.
[2017-08-10] MEDS: BENZONATATE 100 MG CAPSULE PO PRN ×2 (07:44→14:53)
[2017-08-10 08:00] VITALS: BP 141/72
[2017-08-10] MEDS: methylPREDNISolone SOD SUCC 125 MG/2ML VIAL IV SCH ×3 (08:19→17:08)
[2017-08-10] MEDS: AMIODARONE HCL 200 MG TABLET PO SCH (08:20)
[2017-08-10] MEDS: METOPROLOL SUCCINATE 50 MG TAB.SR.24H PO SCH (08:20)
[2017-08-10] MEDS: PANTOPRAZOLE 40 MG TABLET.DR PO SCH (08:20)
[2017-08-10] MEDS: LISINOPRIL (5MG) 5 MG TABLET PO SCH (08:20)
[2017-08-10] MEDS: TAMSULOSIN 0.4 MG CAP.SR.24H PO SCH (08:21)
[2017-08-10] MEDS: MORPHINE SULFATE SR 15 MG TABLET.SA PO SCH ×2 (08:21→21:30)
[2017-08-10] MEDS: Magnesium 1GM/D5W 100ML PREMIX 100 ML IV SCH ×2 (09:34→10:40)
[2017-08-10] MEDS: TBO-FILGRASTIM 300 MCG/0.5 ML SYRINGE SQ SCH (11:35)
[2017-08-10 12:00] VITALS: BP 127/73
[2017-08-10 16:00] VITALS: BP 124/53
[2017-08-10] MEDS: HYDROCODONE/APAP 10/325MG 1 EA TABLET PO PRN (17:09)
[2017-08-10 20:00] VITALS: BP 127/83
[2017-08-10] MEDS ORDERED: LORAZEPAM INJ 2 MG/ML VIAL IV PRN (21:30)
[2017-08-10] MEDS: ATORVASTATIN 40 MG TABLET PO SCH (21:30)
[2017-08-10] MEDS: ENOXAPARIN SODIUM 40 MG/0.4 ML DISP.SYRIN SQ SCH (21:31)
--- NOTE | 2017-08-10 21:38 | NUR ---
RN NOTE PATIENT STATED "I FEEL ANXIOUS', HR 115, SO2 99%, NO RESPIRATORY DISTRESS NOTED, NOTIFIED DR ARIAS CHELSEA, NEW ORDER OF ATIVAN IS GIVEN AND CARRIED OUT, WILL CONTINUE TO MONITOR PATIENT
[2017-08-10] MEDS: ZOLPIDEM TARTRATE 10 MG TABLET PO PRN (22:38)
--- NOTE | 2017-08-10 22:57 | NUR ---
RN NOTE EPISODE OF CONFUSION/HALLUCINATION, NOTIFIED DR MANJULA TRAN, DOCTOR CHELSEA FRANKEL REQUESTED TO PUT AN ORDER FOR PSYCH CONSULT Addendum: 08/10/17 at 2345 by ANDREA BURTON RN ADDITIONALLY DR MANJULA TRAN STATED TO ENDORSE TO AM SHIFT FOR POSSIBLE CT SCAN OF THE HEAD WITH CONTRAST IF PRIMARY PHYSICIAN DECIDES TO DO IT, WILL ENDORSE TO AM SHIFT, CHARGE NURSE RAINER IS AWARE
[2017-08-11] VITALS (7 sets, daily range): BP systolic 127–172; BP diastolic 75–96
[2017-08-11] MEDS: IPRATROPIUM NEB FS 0.5 MG/2.5 ML AMPUL.NEB NEB SCH ×7 (00:17→23:30)
[2017-08-11] MEDS: ALBUTEROL FS 2.5 MG/0.5 ML VIAL.NEB NEB SCH ×7 (00:17→23:30)
[2017-08-11] MEDS: HYDROCODONE BIT/HOMATROPINE 5 ML UDC PO PRN ×2 (03:35→09:07)
[2017-08-11] MEDS: VANCOMYCIN 1 GM in IV D5W 250 ML IV SCH ×2 (04:31→17:30)
[2017-08-11] MEDS: PIPERACILLIN /TAZOBACTAM 3.375 G in IV D5W 50 ML IV SCH ×4 (05:09→23:38)
[2017-08-11 06:37] LABS: HEMATOCRIT 29 % (39-51); HEMOGLOBIN 9.8 g/dL (13.5-17.5); LYMPHOCYTES # (AUTO) 0.1 /CMM (0.8-4.8); LYMPHOCYTES % (AUTO) 4.7 % (20.0-44.0); MEAN CORPUSCULAR HGB CONC 34 g/dl (31.0-36.0); MEAN CORPUSCULAR VOLUME 83 fL (80-96); MONOCYTES # (AUTO) 0.1 /CMM (0.1-1.30); MONOCYTES % (AUTO) 5.1 % (2.0-12.0); NEUTROPHILS # (AUTO) 1.3 /CMM (1.8-8.9); NEUTROPHILS % (AUTO) 90.2 % (43.0-81.0); PLATELET COUNT (AUTO) 85 /CMM (150-450); RDW COEFFICIENT OF VARIATION 16.4 (11.5-15.0); RED BLOOD CELL COUNT(AUTO) 3.48 MIL/uL (4.5-6.0)
[2017-08-11 06:46] LABS: WHITE BLOOD COUNT (AUTO) 1.5 K/uL (4.3-11.0)
[2017-08-11] MEDS: HYDROCODONE/APAP 10/325MG 1 EA TABLET PO PRN (06:48)
--- NOTE | 2017-08-11 06:48 | NUR ---
RN NOTES RECEIVED CRITICAL LAB RESULT FROM "RUSTY" FROM LABORATORY. WBC 1.5, RELAYED TO ALFONSO GRAJEDA.
--- NOTE | 2017-08-11 06:50 | NUR ---
RN NOTE WBC 1.5 NOTIFIED MD CHELSEA FAIR
[2017-08-11 06:57] LABS: CALCIUM, SERUM 7.9 mg/dL (8.5-10.1); CREATININE 0.9 mg/dL (0.6-1.3); MAGNESIUM 1.6 mg/dL (1.8-2.4); PHOSPHORUS 2.1 mg/dL (2.5-4.9); POTASSIUM 3.4 mmol/L (3.5-5.1)
--- NOTE | 2017-08-11 07:05 | NUR ---
RN NOTES PT IS AWAKE AND RESTING IN BED, SITTING UP. PT ON 3L O2, O2 SAT 90%. IV ON LFA INTACT AND RUNNING NS @ 75ML/HR. TELE MONITOR SHOWS SINUS TACH. SAFETY MEASURES ARE IN PLACE, CALL LIGHT IS IN REACH. WILL CONTINUE TO MONITOR.
--- NOTE | 2017-08-11 07:24 | NUR ---
RN NOTE NO ACUTE CHANGES ON MY SHIFT , NO RESPIRATORY DISTRESS NOTED AT THIS TIME, PAIN IS WELL CONTROLLED WITH PAIN MEDICATION, STILL PERIODS OF CONFUSION, MD ROMMEL IS AWARE, ALL SAFETY MEASURES TAKEN, CALL LIGHT WITHIN REACH, BED IN THE LOWEST POSITION, SIDE RAILS UP X 2, BED ALARM ACTIVATED AND CHECKED PRIOR, ENDORSED TO AM SHIFT FOR GAURANG
[2017-08-11] MEDS: MORPHINE SULFATE SR 15 MG TABLET.SA PO SCH (08:25)
[2017-08-11] MEDS: methylPREDNISolone SOD SUCC 125 MG/2ML VIAL IV SCH ×3 (08:25→16:48)
[2017-08-11] MEDS: TAMSULOSIN 0.4 MG CAP.SR.24H PO SCH (08:25)
[2017-08-11] MEDS: PANTOPRAZOLE 40 MG TABLET.DR PO SCH (08:25)
[2017-08-11] MEDS: AMIODARONE HCL 200 MG TABLET PO SCH (08:25)
[2017-08-11] MEDS: LISINOPRIL (5MG) 5 MG TABLET PO SCH (08:26)
[2017-08-11] MEDS: METOPROLOL SUCCINATE 50 MG TAB.SR.24H PO SCH (08:26)
--- NOTE | 2017-08-11 09:00 | NUR ---
RN NOTES PT IS STATING HE WANTS TO TALK TO THE DOCTOR ABOUT PT ASSISTED AND THAT HE DOES NOT WANT TO CONTINUE WITH TREATMENTS ANYMORE. MADE AWARE.
[2017-08-11] MEDS: hydrALAZINE HCL 50 MG TABLET PO SCH ×3 (10:25→16:49)
[2017-08-11 10:56] LABS: BAND % (MANUAL) 1 % (0.0-5.0); LYMPHOCYTES % (MANUAL) 8 % (16-48); MONOCYTES % (MANUAL) 3 % (0-11.0); NEUTROPHILS % (MANUAL) 88 (42-76)
[2017-08-11] MEDS ORDERED: POTASSIUM CHLORIDE 20 MEQ TAB.PRT.SR PO SCH (11:00)
[2017-08-11] MEDS: TBO-FILGRASTIM 300 MCG/0.5 ML SYRINGE SQ SCH (11:04)
[2017-08-11] MEDS: Magnesium 1GM/D5W 100ML PREMIX 100 ML IV SCH ×2 (11:37→12:38)
[2017-08-11] MEDS ORDERED: K PHOS NEUTRAL 250 MG TABLET PO ONE (12:00)
[2017-08-11] MEDS: ACETAMINOPHEN 325 MG TABLET PO PRN ×2 (15:03→21:05)
[2017-08-11] MEDS ORDERED: IPRATROPIUM NEB FS 0.5 MG/2.5 ML AMPUL.NEB NEB SCH (15:30)
[2017-08-11] MEDS: ACETYLCYSTEINE 10% SOLN 400 MG/4 ML VIAL NEB SCH ×2 (15:30→23:30)
[2017-08-11] MEDS: GLUCERNA SHAKE 237 ML CAN PO SCH (17:00)
--- NOTE | 2017-08-11 18:40 | NUR ---
RN NOTES PT IS SITTING UP IN BED, RESTING COMFORTABLY. PT ON 3L O2, RESPIRATIONS ARE EVEN AND UNLABORED. IV ON LFA INTACT AND RUNNING NS @ 75ML/HR. NO SIGNS OF DISTRESS NOTED. ALL MEDS WERE GIVEN ORDERED AND PT NEEDS MET. SAFETY MEASURES ARE IN PLACE, CALL LIGHT IS IN REACH. WILL ENDORSE TO SPRAY GUNNER RN FOR CONTINUITY OF CARE.
[2017-08-11] MEDS: ENOXAPARIN SODIUM 40 MG/0.4 ML DISP.SYRIN SQ SCH (21:06)
[2017-08-12] VITALS: BP 160/91
[2017-08-12 00:02] VITALS: BP 160/91
[2017-08-12] MEDS: ALBUTEROL FS 2.5 MG/0.5 ML VIAL.NEB NEB SCH ×7 (00:33→23:39)
[2017-08-12] MEDS: ACETYLCYSTEINE 10% SOLN 400 MG/4 ML VIAL NEB SCH ×4 (00:33→23:39)
[2017-08-12] MEDS: IPRATROPIUM NEB FS 0.5 MG/2.5 ML AMPUL.NEB NEB SCH ×7 (00:33→23:39)
[2017-08-12] MEDS: IV NS 0.9% 1,000 ML IV PRN (01:58)
[2017-08-12] MEDS: ACETAMINOPHEN 325 MG TABLET PO PRN (03:46)
[2017-08-12] MEDS: VANCOMYCIN 1 GM in IV D5W 250 ML IV SCH (03:55)
[2017-08-12 04:00] VITALS: BP 146/92
[2017-08-12] MEDS: PIPERACILLIN /TAZOBACTAM 3.375 G in IV D5W 50 ML IV SCH ×2 (05:38→12:23)
[2017-08-12 06:30] LABS: BASOPHILS % (AUTO) 0.2 % (0.0-2.0); EOSINOPHILS % (AUTO) 0.3 % (0.0-6.0); HEMATOCRIT 28 % (39-51); HEMOGLOBIN 9.7 g/dL (13.5-17.5); LYMPHOCYTES # (AUTO) 0.1 /CMM (0.8-4.8); LYMPHOCYTES % (AUTO) 11.1 % (20.0-44.0); MEAN CORPUSCULAR HGB CONC 34 g/dl (31.0-36.0); MEAN CORPUSCULAR VOLUME 83 fL (80-96); MONOCYTES # (AUTO) 0.1 /CMM (0.1-1.30); MONOCYTES % (AUTO) 5.3 % (2.0-12.0); NEUTROPHILS # (AUTO) 0.9 /CMM (1.8-8.9); NEUTROPHILS % (AUTO) 83.1 % (43.0-81.0); PLATELET COUNT (AUTO) 59 /CMM (150-450); RDW COEFFICIENT OF VARIATION 16.3 (11.5-15.0); RED BLOOD CELL COUNT(AUTO) 3.42 MIL/uL (4.5-6.0)
[2017-08-12 07:05] LABS: CALCIUM, SERUM 8.3 mg/dL (8.5-10.1); CREATININE 0.8 mg/dL (0.6-1.3); MAGNESIUM 1.7 mg/dL (1.8-2.4); PHOSPHORUS 2.4 mg/dL (2.5-4.9); POTASSIUM 3.3 mmol/L (3.5-5.1)
[2017-08-12 07:07] LABS: WHITE BLOOD COUNT (AUTO) 1.1 K/uL (4.3-11.0)
--- NOTE | 2017-08-12 07:20 | NUR ---
RN OPENING NOTES RECEIVED PATIENT SITTING IN THE CHAIR RESTING, A/OX3. ON 3LPM VIA NASAL CANULA, SPO2 93%. NO ACUTE DISTRESS, NO SOB, DENIED PAIN OR DISCOMFORT AT THIS TIME. IV SITE INTACT AND PATENT. KEPT PATIENT SAFE AND COMFORTABLE. BED IN LOW/LOCKED POSITION, SIDERAILS UPX2, CALL LIGHT IN REACH. WILL CONTINUE TO MONITOR ACCORDINGLY.
[2017-08-12 08:00] VITALS: BP 145/82
[2017-08-12] MEDS: GLUCERNA SHAKE 237 ML CAN PO SCH ×2 (08:00→17:36)
[2017-08-12] MEDS: methylPREDNISolone SOD SUCC 125 MG/2ML VIAL IV SCH (08:54)
[2017-08-12] MEDS: PANTOPRAZOLE 40 MG TABLET.DR PO SCH (08:56)
[2017-08-12] MEDS: hydrALAZINE HCL 50 MG TABLET PO SCH ×3 (08:56→16:15)
[2017-08-12] MEDS: TAMSULOSIN 0.4 MG CAP.SR.24H PO SCH (08:56)
[2017-08-12] MEDS: METOPROLOL SUCCINATE 50 MG TAB.SR.24H PO SCH (08:56)
[2017-08-12] MEDS: AMIODARONE HCL 200 MG TABLET PO SCH (08:57)
[2017-08-12] MEDS: LISINOPRIL (5MG) 5 MG TABLET PO SCH (08:57)
--- NOTE | 2017-08-12 09:00 | NUR ---
RN NOTES CALLED KITCHEN X2 REGARDING GLUCERNA. GLUCERNA NEVER CAME.
[2017-08-12 10:00] LABS: BAND % (MANUAL) 2 % (0.0-5.0); LYMPHOCYTES % (MANUAL) 18 % (16-48); MONOCYTES % (MANUAL) 1 % (0-11.0); NEUTROPHILS % (MANUAL) 79 (42-76)
--- NOTE | 2017-08-12 10:00 | NUR ---
RN NOTES NOTIFIED DR WINTERS FOR WBC 1.[address] WINTERS, CONTINUE GRANIX.
--- NOTE | 2017-08-12 10:02 | NUR ---
RN NOTES DR HULL AT BEDSIDE WITH NEW ORDERS TO CHANGE SOLUMEDROL DOSE. NEW ORDERS OF SOLUMEDROL 40MG IV Q24HR AND NORCO10 PO Q4HR PRN
[2017-08-12] MEDS: HYDROCODONE/APAP 10/325MG 1 EA TABLET PO PRN ×2 (10:20→19:31)
[2017-08-12] MEDS: Magnesium 1GM/D5W 100ML PREMIX 100 ML IV SCH ×2 (10:45→15:35)
--- NOTE | 2017-08-12 10:59 | NUR ---
STOOL IS SOFT BROWN AND FORMED. NOT A CRITERIA FOR C-DIFF COLLECTION
[2017-08-12] MEDS ORDERED: K PHOS NEUTRAL 250 MG TABLET PO ONE (11:00)
[2017-08-12] MEDS ORDERED: VANCOMYCIN 0.75 GM in IV NS 0.9% 250 ML IV SCH (12:00)
[2017-08-12] MEDS: POTASSIUM CHLORIDE 20 MEQ TAB.PRT.SR PO SCH ×3 (12:25→15:44)
[2017-08-12] MEDS ORDERED: LORAZEPAM 1 MG TABLET PO PRN (12:30)
[2017-08-12] MEDS: DULOXETINE HCL 30 MG CAPSULE.DR PO SCH (13:20)
[2017-08-12] MEDS: TBO-FILGRASTIM 300 MCG/0.5 ML SYRINGE SQ SCH (13:21)
[2017-08-12 16:00] VITALS: BP 136/83
--- NOTE | 2017-08-12 19:20 | NUR ---
RN CLOSING NOTES PATIENT IN STABLE CONDITION. ALL NEEDS ATTENDED AND PROVIDED. KEPT PATIENT SAFE AND COMFORTABLE. BED IN LOW/LOCKED POSITION, SIDERAILS UPX2, CALL LIGHT IN REACH. ENDORSED TO NIGHT RN FOR GAURANG.
[2017-08-12 20:00] VITALS: BP 143/79
[2017-08-12] MEDS ORDERED: ZOLPIDEM TARTRATE 10 MG TABLET PO PRN (20:00)
[2017-08-12] MEDS: ENOXAPARIN SODIUM 40 MG/0.4 ML DISP.SYRIN SQ SCH (21:22)
[2017-08-13] MEDS: HYDROCODONE/APAP 10/325MG 1 EA TABLET PO PRN (03:05)
[2017-08-13] MEDS: ALBUTEROL FS 2.5 MG/0.5 ML VIAL.NEB NEB SCH ×3 (03:30→10:51)
[2017-08-13] MEDS: IPRATROPIUM NEB FS 0.5 MG/2.5 ML AMPUL.NEB NEB SCH ×3 (03:30→10:51)
[2017-08-13 04:00] VITALS: BP 139/62
[2017-08-13] MEDS ORDERED: ALBUTEROL HALF STRENGTH 1.25 MG/3 ML VIAL.NEB NEB PRN (05:30)
[2017-08-13] MEDS ORDERED: IPRATROPIUM NEB FS 0.5 MG/2.5 ML AMPUL.NEB NEB PRN (05:30)
[2017-08-13] MEDS: ACETAMINOPHEN 325 MG TABLET PO PRN ×2 (05:36→14:57)
[2017-08-13 06:34] LABS: BASOPHILS % (AUTO) 0.1 % (0.0-2.0); EOSINOPHILS % (AUTO) 0.2 % (0.0-6.0); HEMATOCRIT 30 % (39-51); HEMOGLOBIN 10.2 g/dL (13.5-17.5); LYMPHOCYTES # (AUTO) 0.4 /CMM (0.8-4.8); LYMPHOCYTES % (AUTO) 12.8 % (20.0-44.0); MEAN CORPUSCULAR HGB CONC 34 g/dl (31.0-36.0); MEAN CORPUSCULAR VOLUME 82 fL (80-96); MONOCYTES # (AUTO) 0.1 /CMM (0.1-1.30); MONOCYTES % (AUTO) 2.3 % (2.0-12.0); NEUTROPHILS # (AUTO) 2.5 /CMM (1.8-8.9); NEUTROPHILS % (AUTO) 84.6 % (43.0-81.0); PLATELET COUNT (AUTO) 73 /CMM (150-450); RDW COEFFICIENT OF VARIATION 16.2 (11.5-15.0); RED BLOOD CELL COUNT(AUTO) 3.66 MIL/uL (4.5-6.0); WHITE BLOOD COUNT (AUTO) 2.9 K/uL (4.3-11.0)
[2017-08-13 07:01] LABS: CALCIUM, SERUM 8.5 mg/dL (8.5-10.1); CREATININE 0.9 mg/dL (0.6-1.3); MAGNESIUM 1.6 mg/dL (1.8-2.4); PHOSPHORUS 2.4 mg/dL (2.5-4.9); POTASSIUM 3.4 mmol/L (3.5-5.1)
[2017-08-13] MEDS: ACETYLCYSTEINE 10% SOLN 400 MG/4 ML VIAL NEB SCH (07:35)
--- NOTE | 2017-08-13 07:36 | NUR ---
RN OPENING NOTES RECEIVED PATIENT IN BED RESTING,EASILY AROUSABLE DURING CARE A/OX4. NO ACUTE DISTRESS, NO SOB, DENIED PAIN OR DISCOMFORT AT THIS TIME. IV SITE INTACT AND PATENT, NO REDNESS OR INFILTRATION NOTED. ISOLATION WAS D/C'D. KEPT PATIENT CLEAN, SAFE AND COMFORTABLE. BED IN LOW/LOCKED POSITION, SIDERAILS UPX2, CALL LIGHT IN REACH. WILL CONTINUE TO MONITOR . Addendum: 08/13/17 at 0738 by BELLO SALAZAR RN RN NOTES CORRECTION OF NOTES ISOLATION PRECAUTIONS OBSERVED
[2017-08-13 08:00] VITALS: BP 145/89
[2017-08-13] MEDS: PANTOPRAZOLE 40 MG TABLET.DR PO SCH (08:54)
[2017-08-13] MEDS: DULOXETINE HCL 30 MG CAPSULE.DR PO SCH (08:54)
[2017-08-13] MEDS: TAMSULOSIN 0.4 MG CAP.SR.24H PO SCH (08:54)
[2017-08-13] MEDS: AMIODARONE HCL 200 MG TABLET PO SCH (08:55)
[2017-08-13] MEDS: LISINOPRIL (5MG) 5 MG TABLET PO SCH (08:55)
[2017-08-13] MEDS ORDERED: methylPREDNISolone SOD SUCC 40 MG/ML VIAL IV SCH (09:00)
[2017-08-13 09:50] LABS: BAND % (MANUAL) 5 % (0.0-5.0); EOSINOPHILS % (MANUAL) 1 % (0-4); LYMPHOCYTES % (MANUAL) 16 % (16-48); MONOCYTES % (MANUAL) 8 % (0-11.0); NEUTROPHILS % (MANUAL) 70 (42-76)
[2017-08-13] MEDS: GLUCERNA SHAKE 237 ML CAN PO SCH (10:00)
[2017-08-13] MEDS: METOPROLOL SUCCINATE 50 MG TAB.SR.24H PO SCH (10:02)
[2017-08-13] MEDS: hydrALAZINE HCL 50 MG TABLET PO SCH ×2 (10:02→12:31)
[2017-08-13] MEDS: POTASSIUM CHLORIDE 20 MEQ TAB.PRT.SR PO SCH ×3 (10:03→12:30)
[2017-08-13] MEDS: Magnesium 1GM/D5W 100ML PREMIX 100 ML IV SCH ×2 (10:03→11:13)
[2017-08-13 12:00] VITALS: BP 123/75
[2017-08-13] MEDS: TBO-FILGRASTIM 300 MCG/0.5 ML SYRINGE SQ SCH (12:30)
[2017-08-13 12:31] VITALS: BP 123/75
[2017-08-13] MEDS ORDERED: K PHOS NEUTRAL 250 MG TABLET PO ONE (15:00)
--- NOTE | 2017-08-13 15:30 | NUR ---
TELEVISION JOURNALIST NOTES PATIENT IS AWAKE A/OX4, ABLE TO MAKE NEEDS KNOWN.RESPIRATIONS EVEN AND UNLABORED, NO ACUTE DISTRESS, DENIES ANY PAIN OR DISCOMFORT AT THIS TIME. IV SITE INTACT AND ID BAND REMOVED WITH NO ASE NOTED, NO SKIN ISSUES NOTED. PATIENT WITH DISCHARGE ORDERS ALL INSTRUCTIONS REVIEWED WITH PT AND WELL SNF RN WITH VERBAL UNDERSTANDING NOTED. ALL BELONGINGS ACCOUNTED FOR, REPORT GIVEN TO EMT FOR CONTINUITY OF CARE, PATIENT DISCHARGED IN STABLE CONDITION
[2017-08-13] MEDS ORDERED: ENOX40DI SQ (23:21)
== END 2017-08-13 15:03 | DRG 808 ==
LOC: ER 12:48 → TELE1 15:53 → MEDSG1 08-12 10:46
PROVIDERS: ADMIT Nurse Practitioner Acute Care; ATTEND Nurse Practitioner Acute Care
DX: D61.810 Antineoplastic chemotherapy induced pancytopenia (principal); J15.9 Unspecified bacterial pneumonia; D68.59 Other primary thrombophilia; I48.91 Unspecified atrial fibrillation; E87.1 Hypo-osmolality and hyponatremia; C34.90 Malignant neoplasm of unspecified part of unspecified bronchus or lung; E11.9 Type 2 diabetes mellitus without complications; E83.42 Hypomagnesemia; I47.1 Supraventricular tachycardia; J44.0 Chronic obstructive pulmonary disease with (acute) lower respiratory infection; J44.1 Chronic obstructive pulmonary disease with (acute) exacerbation; E86.0 Dehydration; J20.9 Acute bronchitis, unspecified; I25.10 Atherosclerotic heart disease of native coronary artery without angina pectoris; Z95.5 Presence of coronary angioplasty implant and graft; Z95.1 Presence of aortocoronary bypass graft; Z87.440 Personal history of urinary (tract) infections; Z81.8 Family history of other mental and behavioral disorders; Z79.899 Other long term (current) drug therapy; Z79.82 Long term (current) use of aspirin; Z87.891 Personal history of nicotine dependence; N40.0 Benign prostatic hyperplasia without lower urinary tract symptoms; G47.00 Insomnia, unspecified; E78.5 Hyperlipidemia, unspecified; F32.9 Major depressive disorder, single episode, unspecified; I10 Essential (primary) hypertension; I25.2 Old myocardial infarction; T45.1X5A Adverse effect of antineoplastic and immunosuppressive drugs, initial encounter; Y92.9 Unspecified place or not applicable; Y84.2 Radiological procedure and radiotherapy as the cause of abnormal reaction of the patient, or of later complication, without mention of misadventure at the time of the procedure
CPT/HCPCS: 36415; 70450-TC; 71045-TC; 80048-TC; 80053-TC; 80061-TC; 80202-TC; 83605-TC; 83735-TC; 84100-TC; 84443-TC; 84484-TC; 85025-TC; 87040-TC; 87081-TC; 93307-TC; 94799-TC; A4606; C9113; J1100; J1442; J1650; J2060; J2543; J2920; J2930; J3370; J3475; J7030; J7040; J7050; J7060; Q9967; Z7610

== ENCOUNTER 2017-08-16 12:40 | Emergency (ER) | payer MEDICARE, OTHER ==
[~2017-08-16] VITALS: Ht 175.3 cm; Wt 57.2 kg
[~2017-08-16 12:40] MED LIST changes: +ENOX40DI SQ
--- NOTE | 2017-08-16 12:50 | NUR ---
BBRA FROM [facility] FOR LOSS OF APPETITE AND WEAKNESS X 4 DAYS. PATIENT IS A/OX 4, BREATHING EVEN AND UNLABORED. NO SOB, NAD, VITALS STABLE. SAFETY AND COMFORT MEASURES IN PLACE. AWAITING MD ORDERS.
[2017-08-16] MEDS ORDERED: DOCU-141 PO (12:57)
[2017-08-16] MEDS ORDERED: BENZ-13 PO (12:57)
[2017-08-16] MEDS ORDERED: NUT.237L28 PO (12:57)
[2017-08-16] MEDS ORDERED: MEGE400O4 PO (12:57)
[2017-08-16] MEDS ORDERED: ZOLP10TA2 PO (12:57)
[2017-08-16] MEDS ORDERED: PANT40TA2 PO (12:57)
[2017-08-16] MEDS ORDERED: ALBU2.5V38 IH ×2 (12:57)
[2017-08-16] MEDS ORDERED: LORA1TAB PO (12:57)
[2017-08-16] MEDS ORDERED: METO25TA3 PO (12:57)
[2017-08-16] MEDS ORDERED: DULO30CA2 PO (12:57)
[2017-08-16] MEDS ORDERED: MAGN400O6 PO (12:57)
[2017-08-16] MEDS ORDERED: ACET-868 PO (12:57)
[2017-08-16] MEDS ORDERED: HYDR-548 PO (12:57)
[2017-08-16] MEDS ORDERED: NA P133E RC (12:57)
[2017-08-16] MEDS ORDERED: ENOX40DI SQ (12:57)
[2017-08-16] MEDS ORDERED: ACET100V4 HHN (12:57)
[2017-08-16] MEDS ORDERED: BISA10SU61 RC (12:57)
[2017-08-16] MEDS ORDERED: IPRA0.2S9 IH ×2 (12:57)
--- NOTE | 2017-08-16 13:10 | NUR ---
NEW IV STARTED ON LFA, 18G. BLOOD DRAWN AND SENT TO LAB .
[2017-08-16] MEDS ORDERED: HYDROMORPHONE INJ 2 MG/ML DISP.SYRIN IV ONE (14:30)
[2017-08-16] MEDS ORDERED: ONDANSETRON HCL/PF 4 MG/2 ML VIAL IVP ONE (14:30)
[2017-08-16] MEDS ORDERED: IV NS 0.9% 1,000 ML BAG IV ONE (14:30)
[2017-08-16 14:35] LABS: BASOPHILS % (AUTO) 0.3 % (0.0-2.0); HEMATOCRIT 29 % (39-51); HEMOGLOBIN 9.9 g/dL (13.5-17.5); LYMPHOCYTES # (AUTO) 0.2 /CMM (0.8-4.8); LYMPHOCYTES % (AUTO) 3.9 % (20.0-44.0); MEAN CORPUSCULAR HGB CONC 34 g/dl (31.0-36.0); MEAN CORPUSCULAR VOLUME 83 fL (80-96); MONOCYTES # (AUTO) 0.7 /CMM (0.1-1.30); MONOCYTES % (AUTO) 11.1 % (2.0-12.0); NEUTROPHILS # (AUTO) 5.1 /CMM (1.8-8.9); NEUTROPHILS % (AUTO) 84.7 % (43.0-81.0); PLATELET COUNT (AUTO) 102 /CMM (150-450); RDW COEFFICIENT OF VARIATION 16.4 (11.5-15.0); RED BLOOD CELL COUNT(AUTO) 3.56 MIL/uL (4.5-6.0)
[2017-08-16] MEDS ORDERED: HYDROMORPHONE INJ 0.5 MG/0.5 ML SYRINGE ONE (14:35)
[2017-08-16] MEDS ORDERED: ONDANSETRON HCL/PF 4 MG/2 ML VIAL ONE (14:36)
[2017-08-16 14:40] LABS: CALCIUM, SERUM 8.3 mg/dL (8.5-10.1); CARBON DIOXIDE 32 mmol/L (21-32); CHLORIDE 98 mmol/L (98-107); CREATININE 0.8 mg/dL (0.6-1.3); GLUCOSE 84 mg/dL (74-106); POTASSIUM 2.9 mmol/L (3.5-5.1); SODIUM SERUM 138 mmol/L (136-145); UREA NITROGEN, BLOOD 24 mg/dL (7-18)
--- NOTE | 2017-08-16 14:44 | NUR ---
PEST CONTROL WORKER AT BEDSIDE.
[2017-08-16 14:48] LABS: TROPONIN I < 0.017 ng/mL (0.00-0.056)
[2017-08-16 14:53] LABS: B-TYPE NATRIURETIC PEPTIDE 9360 PG/ML (0-125)
[2017-08-16 14:59] LABS: INR 1.02 (0.87-1.13)
--- NOTE | 2017-08-16 15:14 | NUR ---
URINE OBTAINED AND SENT TO LAB.
[2017-08-16 15:20] LABS: APPEARANCE,URINE Slightly Cloudy (CLEAR); BILIRUBIN,URINE Negative (NEGATIVE); BLOOD, URINE Trace-intact Ery/uL (NEGATIVE); COLOR,URINE Yellow (YELLOW); KETONES,URINE 40 (NEGATIVE); LEUKOCYTE ESTERASE ,URINE Negative (NEGATIVE); NITRITE, URINE Negative (NEGATIVE); PROTEIN,URINE Negative (NEGATIVE); UGLUCOSE Negative (NEGATIVE)
[2017-08-16 15:41] LABS: BACTERIA,URINE Rare /HPF (None Seen); WBC,URINE 0-2 /HPF (0-3)
[2017-08-16 15:42] LABS: SQUAMOUS EPITHELIAL CELL,UR Rare /HPF (None Seen); YEAST,URINE Rare /HPF (None Seen)
[2017-08-16] MEDS ORDERED: POTASSIUM CHLORIDE 20 MEQ TAB.PRT.SR PO ONE ×2 (16:00→16:36)
[2017-08-16] MEDS ORDERED: IPRATROPIUM NEB FS 0.5 MG/2.5 ML AMPUL.NEB NEB ONE (16:30)
[2017-08-16] MEDS ORDERED: ALBUTEROL FS 2.5 MG/3 ML VIAL.NEB NEB ONE (16:30)
[2017-08-16] MEDS ORDERED: ALBUTEROL FS 2.5 MG/3 ML VIAL.NEB ONE (16:38)
[2017-08-16] MEDS ORDERED: IPRATROPIUM NEB FS 0.5 MG/2.5 ML AMPUL.NEB ONE (16:38)
--- NOTE | 2017-08-16 16:38 | NUR ---
BED 310-1
--- NOTE | 2017-08-16 16:45 | NUR ---
REPORT GIVEN TO WILMER HAMILTON FOR GAURANG UPON ADMISSION.
[2017-08-16] MEDS ORDERED: FENTANYL TD PATCH (50 MCG/HR) 50 MCG/HR PATCH.TD72 TD SCH (17:00)
--- NOTE | 2017-08-16 18:07 | NUR ---
PAMELA CALLED [phone] TRANSFER #[id number]
--- NOTE | 2017-08-16 19:21 | NUR ---
LUIS ALBARRAN FROM [facility] IS ORGANIZING SET UP AT PT'S HOME AND TRANSPORTATION TO HOME AT APPROX 2100. [place] TO GASTROENTEROLOGY NURSE PT AT THAT TIME. LUIS CAN BE REACHED AT .
--- NOTE | 2017-08-16 20:29 | NUR ---
[facility] ETA CHANGED TO 2199
--- NOTE | 2017-08-16 22:24 | NUR ---
PT STABLE. AWAITING TRANSPORT
--- NOTE | 2017-08-16 22:49 | NUR ---
REPORT GIVEN TO EMT KATLINNZaira
[2017-08-16 23:02] VITALS: BP 129/78
== END 2017-08-16 23:03 | disposition home or self-care (01) ==
LOC: ER 12:44 → UNDOADMIN 16:52 → TELE 16:52 → ER 23:03
DX: I11.0 Hypertensive heart disease with heart failure (principal); I50.9 Heart failure, unspecified; R06.02 Shortness of breath; E87.6 Hypokalemia; C80.1 Malignant (primary) neoplasm, unspecified; C78.00 Secondary malignant neoplasm of unspecified lung; F17.200 Nicotine dependence, unspecified, uncomplicated; E78.5 Hyperlipidemia, unspecified; E78.00 Pure hypercholesterolemia, unspecified; Z95.1 Presence of aortocoronary bypass graft; Z98.890 Other specified postprocedural states; Z79.82 Long term (current) use of aspirin
CPT/HCPCS: 36415; 71045; 80048; 81001; 82962; 83880; 84484; 85025; 85730; 93005; 94640; 96361; 96374; 96375; 99285; A4606; J2405; J7030; 81000-TC; Z7610

== ENCOUNTER 2017-08-17 02:17 | Emergency (ER) | payer MEDICARE, OTHER ==
[~2017-08-17] VITALS: Ht 180.3 cm; Wt 54.9 kg
[~2017-08-17 02:17] MED LIST changes: +ACET-868 PO; +ACET100V4 HHN; +ALBU2.5V38 IH; -ALBU8.5H4 IH; -ASPI-495 PO; +BENZ-13 PO; +BISA10SU61 RC; -CLOP75TA15 PO; +DOCU-141 PO; +DULO30CA2 PO; -FERR325T28 PO; +HYDR-548 PO; -HYDR-552 PO; +IPRA0.2S9 IH; -IPRA3AMP23 IH; +LORA1TAB PO; +MAGN400O6 PO; +MEGE400O4 PO; -MORP10CA11 PO; +NA P133E RC; +NUT.237L28 PO; +PANT40TA2 PO; -PRED50TA PO; -ROSU10TA PO; +ZOLP10TA2 PO
--- NOTE | 2017-08-17 02:17 | NUR ---
PT TO ER BED 8. BIB RA FROM HOME C/O SOB. PT DISCHARGED FROM ER A SHORT TIME AGO TO HOME, FAMILY AND PT AGREED TO HOSPICE CARE. HOSPICE NURSE SPOKE WITH FAMILY AND SET HOMECARE UP. PT ARRIVES BACK IN ER BY RA FOR SOB. PT NOTED SHALLOW, DYSPNEAIC, TACHYPNEIC BREATHING ON ARRIVAL. SEE VS FLOWSHEET. MD AT BEDSIDE FOR EVAL.
--- NOTE | 2017-08-17 02:21 | NUR ---
CALLED LUIS ALBARRAN [phone] FROM [facility]. LUIS KIM PT IN ER, WILL FAX MADELINE JOLLEY.
--- NOTE | 2017-08-17 02:30 | NUR ---
MD AT BEDSIDE SPEAKING WITH REGARDING PT BEING DNR/DNI. STATES PT SIGNED DNR/DNI WITH HOSPICE TODAY, STATES PT ONLY WANTS COMFORT MEASURES. CALLING TO GET COPY OF DNR FAXED.
--- NOTE | 2017-08-17 02:52 | NUR ---
CALLED LUIS ALBARRAN [phone] FROM [facility]. WILL FAX OVER DNR POLST.
--- NOTE | 2017-08-17 02:58 | NUR ---
RECEIVED DNR FAX FROM [facility].
--- NOTE | 2017-08-17 02:59 | NUR ---
SPOKE TO LUIS, AWARE PT TO BE SENT BACK HOME VIA TRANPSORT.
--- NOTE | 2017-08-17 03:06 | NUR ---
[facility] BLS TRANSPORT ETA 5:30-6AM TRIP# [id number]
--- NOTE | 2017-08-17 04:00 | NUR ---
PT RESTING COMFORTABLY, VSS.
--- NOTE | 2017-08-17 05:16 | NUR ---
IV removed. Catheter intact and site benign. Pressure and 4x4 applied to site. No bleeding noted. Patient discharged to home in stable condition. Written and verbal after care instructions given. Patient verbalizes understanding of instruction.
--- NOTE | 2017-08-17 05:17 | NUR ---
REPORT GIVEN TO PAMELA FOR TRANSPORT.
[2017-08-17 05:18] VITALS: BP 154/71
== END 2017-08-17 05:19 | disposition home or self-care (01) ==
LOC: ER 02:18
DX: R06.02 Shortness of breath (principal); R06.09 Other forms of dyspnea; I10 Essential (primary) hypertension; J43.9 Emphysema, unspecified; E78.00 Pure hypercholesterolemia, unspecified; F17.200 Nicotine dependence, unspecified, uncomplicated; Z95.818 Presence of other cardiac implants and grafts; Z95.1 Presence of aortocoronary bypass graft; Z85.118 Personal history of other malignant neoplasm of bronchus and lung; Z79.82 Long term (current) use of aspirin
CPT/HCPCS: A4606; Z7610